=== PATIENT | male | born 1950 | race Two or more races ===

== ENCOUNTER 2021-05-07 10:13 | Emergency (ER) | payer MEDICARE, SELFPAY ==
[2021-05-07 10:25] VITALS: BP 163/87; PULSE 93; RESP 16; TEMP 36.6; O2SAT 97; BMI 29.2
--- NOTE | 2021-05-07 11:16 | ED_ITS ---
HPI - General Adult General Chief complaint: Dyspnea Stated complaint: back pain Time Seen by Provider: 05/07/21 10:46 Source: patient and family Mode of arrival: ambulatory Limitations: language barrier (Comoran-speaking) History of Present Illness HPI narrative: 70-year-old male who recently moved back to [place] from [place] and recently diagnosed with adenocarcinoma of lung on 02/09/2021 presenting to the ED for referral to an oncologist. Reports that he was diagnosed in [place] and had a biopsy any had a PET scan and they told him he had adenocarcinoma of the lung. He decided to leave [place] did not receive any chemotherapy or radiation while he was there and came here for treatment. Denies any additional complaints concerns or worsening symptoms at this time. Related Data Previous Rx's Medication Instructions Recorded oxycodone 5 mg PO BID PRN #20 tab 05/07/21 Allergies Allergy/AdvReac Type Severity Reaction Status Date / Time No Known Allergies Allergy Unknown Unverified 08/07/20 16:08 Review of Systems Review of Systems: Constitutional : Positive lung cancer, No Weight loss, No Fever, No Chills, No Night Sweats, No Fatigue, No Malaise ENT/Mouth : No Hearing loss, No Ear Pain, No Nasal Congestion, No Sinus Pain, No Hoarseness, No sore throat, No Rhinorrhea, No Swallowing Difficulty Eyes: No Eye Pain, No Swelling, No Redness, No Foreign Body, No Discharge, No Vision Changes Cardiovascular : No Chest Pain, No SOB, No Dyspnea on Exertion, No Orthopnea, No Edema, No Palpitations Respiratory : No Cough, No Sputum, No Wheezing, No Smoke Exposure, No Dyspnea Gastrointestinal : No Nausea, No Vomiting, No Diarrhea, No Constipation, No abdominal Pain, No Hematochezia, No Melena Genitourinary : no irregular bleeding, No Dysuria, No Urinary Frequency, No Hematuria, No Urinary Incontinence, No Urgency, No Flank Pain, No Urinary Flow Changes, No Hesitancy Musculoskeletal : No joint pain, No Myalgias, No Joint Swelling Skin : No Skin Lesions, No rash Neuro : No Weakness, No Numbness, No Paresthesias, No Loss of Consciousness, No Dizziness, No Headache Psych : No Anxiety/Panic, No Depression, No SI/HI/AH/VH, No Social Issues, Heme/Lymph: No Bruising, No Bleeding,No Lymphadenopathy Endocrine : No Polyuria, No Polydipsia, No Temperature Intolerance Yes all other systems are reviewed and are negative [facility] Past Medical History Attestation statement: The following information was validated with the patient. Social History Social History Advance Directives: Yes Advance Directives Information Provided: Yes Advance Directives on File: No Physical Exam Vital Signs: Vital Signs: Last Vital Signs Temp 98 F 05/07/21 10:25 Pulse 93 05/07/21 10:25 Resp 16 05/07/21 10:25 BP 163/87 H 05/07/21 10:25 Pulse Ox 97 05/07/21 10:25 Body Mass Index 29.2 vital signs have been reviewed as normal and appeared to be correct. Blood pressure normal. Heart rate normal. Respiration rate normal. Temperature normal. Oxygen saturation normal. Appearance: Alert. Oriented X3. No acute distress. Head: Normal external exam. Normocephalic. Atraumatic. Eyes: PERRLA. EOMI. Conjunctiva and sclera normal. Eyelids normal. ENT: EAC normal. TM's Normal. Pharynx normal. Uvula midline. Moist mucous membranes. No trismus noted. No drooling noted. No muffled voice noted. Neck: Normal inspection. Neck supple. FROM. No adenopathy. Thyroid Normal. No meningeal signs. No neck mass noted. CVS: Normal heart rate and rhythm. Heart sound normal. Pulses normal throughout. No murmurs/rales/gallops. Respiratory: No respiratory distress. Painless inspiration. Breath sounds normal. No wheezes/rales/rhonchi noted. Chest nontender. No accessory muscle usage noted or decreased air movement noted. Abdomen: Soft and nontender. Bowel sounds normal in all 4 quadrants. No distention noted. No organomegaly noted. No visible injury noted. Back: No CVA tenderness. Full range of motion noted. No rashes/lesion/induration/fluctuance or signs of infection noted. Skin: Skin warm and dry. Normal skin color. Normal skin turgor. No rashes/lesions/lacerations noted. Extremities: No lower extremity edema. Extremities exhibit normal range of motion. Extremities nontender. Neuro: Oriented X 3. No motor deficit. No sensory deficit. Reflexes normal. Normal steady gait. No focal neuro deficits noted. Vascular: + radial pulses/+ 2 distal pedal pulses/+2 dorsalis pedis b/l. Normal cap refill. No cyanosis noted to upper extremity nails and lower extremity toes nails. Course Course Course Narrative: 70-year-old male presenting to the ED for referrals due to he recently moved back from [place] to [place] and wants treatment here for his adenocarcinoma of the lung. Reports he did not receive any treatment while he was in [place] other than the diagnosis and the biopsies along with the PET scan. 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 Lung and thyroid neoplasms were positive. Therefore at this time will DC home with symptomatic treatment and instructions follow-up with primary care provider and Oncology. No labs or imaging indicated at this time. Patient and family at bedside understand and agree with this plan. Medical Decision Making Medical Records Medical records reviewed: Yes I reviewed the patient's medical records. Lab Data Lab results reviewed: Yes I reviewed the patient's lab results. Discharge Plan Discharge Clinical Impression: Adenocarcinoma of lung, Cancer of thyroid Patient Disposition: Home, Self-Care Instructions: Lung Cancer (DC), Thyroid Cancer (DC) Prescriptions: New oxycodone 5 mg tablet 5 mg PO BID PRN (Reason: pain) Qty: 20 RF: 0 Referrals: Sudhakar Landrum MD [Primary Care Provider] - 2 days Anuradha Begum MD [Physician] - 2 days Jadyn Lundberg MD [Physician] - 2 days Print Language: Com[place]an
== END 2021-05-07 12:25 | disposition home or self-care (01) ==
PROVIDERS: Emergency Provider Emergency Medicine; PCP Internal Medicine
DX: C34.90 Malignant neoplasm of unspecified part of unspecified bronchus or lung (principal); C73 Malignant neoplasm of thyroid gland
CPT/HCPCS: 99282; 99283

== ENCOUNTER 2021-05-22 15:48 | Outpatient (REF) | payer MEDICARE, MEDICAID, SELFPAY ==
--- NOTE | ~2021-05-22 | US_ITS ---
EXAMINATION: US THYROID CLINICAL INFORMATION: New diagnosis of right lung cancer. Thyroid cancer. COMPARISON: None TECHNIQUE: Linear transducer grayscale and color Doppler examination with attention to the region of the thyroid. FINDINGS: SIZE: Measurements of the thyroid lobes and nodules are given in sagittal, anteroposterior and transverse dimensions respectively. Right Thyroid Lobe: 4.0 x 1.2 x 1.7 cm, volume 4.3 mL. Parenchyma: The gland echotexture is homogeneous. Thyroid vascularity is normal. Left Thyroid Lobe: 3.3 x 0.9 x 1.2 cm, volume 1.9 mL. Parenchyma: The gland echotexture is homogeneous. Thyroid vascularity is normal. Isthmus: 0.3 cm in maximum AP dimension. Estimated total number of nodules greater than or equal to 1 cm: 0. 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 Location: Right isthmus. Size: 0.7 x 0.5 x 0.5 cm, volume 0.2 mL. Nodule characteristics: Composition: Solid/almost completely solid (2). Echogenicity: Isoechoic (1). Shape: Not taller than wide (0). Margins: Smooth (0). Echogenic Foci: None (0). ACR TI-RADS total points: 3 ACR TI-RADS category: 3 2. Location: Right inferior. Size: 0.6 x 0.5 x 0.7 cm, volume 0.12 mL. Nodule characteristics: Composition: Mixed cystic and solid (1). Echogenicity: Cannot be determined (1). Shape: Taller than wide (3). Margins: Smooth (0). Echogenic Foci: Macrocalcifications (1). ACR TI-RADS total points: 6 ACR TI-RADS category: 4 3. Location: Left inferior. Size: 0.8 x 0.5 x 0.9 cm, volume 0.2 mL. Nodule characteristics: Composition: Solid/almost completely solid (2). Echogenicity: Hyperechoic (1). Shape: Not taller than wide (0). Margins: Smooth (0). Echogenic Foci: None (0). ACR TI-RADS total points: 3 ACR TI-RADS category: 3 4. Location: Left mid. Size: 0.4 x 0.3 x 0.5 cm, volume 0.03 mL. Nodule characteristics: Composition: Cystic(0). ACR TI-RADS total points: 0 ACR TI-RADS category: 1 NODES: No lymphadenopathy is seen in the tissue surrounding the thyroid gland. US/US thyroid IMPRESSION: Small bilateral thyroid nodules. ACR TI-RADS RECOMMENDATION REFERENCE: Ultrasound-guided fine-needle aspiration, followup ultrasound, no further follow up. * TR1 (0 point) and TR 2 (2 points): No FNA or follow up * TR3 (3 points): FNA if more than or equal to 2.5 cm in maximum dimension, followup ultrasound in 1, 3 and 5 years if 1.5 to 2.4 cm in maximum dimension. * TR4 (4-6 points): FNA if more than or equal to 1.5 cm in maximum dimension, followup ultrasound in 1, 2, 3 and 5 years if 1 to 1.4 cm in maximum dimension. * TR5 (more than or equal to 7 points): FNA if more than or equal to 1 cm in maximum dimension, followup ultrasound every year for 5 years if 0.5 to 0.9 cm in maximum dimension. * TR3, TR4 or TR5 nodules that are below the size threshold for follow up receive no follow up.
== END 2021-05-22 15:49 | disposition home or self-care (01) ==
LOC: HO.US 15:48
PROVIDERS: Visit Provider Internal Medicine
DX: C73 Malignant neoplasm of thyroid gland (principal)
CPT/HCPCS: 76536

== ENCOUNTER 2021-05-29 | Outpatient (REF) | payer MEDICARE, MEDICAID, SELFPAY | END 2021-05-29 00:01 | disposition home or self-care (01) | LOC: HO.RESP | PROVIDERS: Visit Provider Surgery | DX: C34.91 Malignant neoplasm of unspecified part of right bronchus or lung (principal) | CPT/HCPCS: 94060; 94727; 94729 ==

== ENCOUNTER → 2021-05-29 07:49 | Outpatient (BNV) | payer MEDICARE, OTHER, MEDICAID, SELFPAY | PROVIDERS: PCP Internal Medicine; Referring Provider Internal Medicine; Visit Provider Internal Medicine Medical Oncology | DX: C34.92 Malignant neoplasm of unspecified part of left bronchus or lung (principal); R97.20 Elevated prostate specific antigen [PSA]; Z85.46 Personal history of malignant neoplasm of prostate; C34.31 Malignant neoplasm of lower lobe, right bronchus or lung | CPT/HCPCS: 99204; 99213; 99214 ==

== ENCOUNTER 2021-06-10 08:05 | Outpatient (REF) | payer MEDICARE, MEDICAID, SELFPAY ==
--- NOTE | ~2021-06-10 | CT_ITS ---
EXAMINATION: CT CHEST WITHOUT CONTRAST CLINICAL INFORMATION: Neoplasm COMPARISON: Previous chest x-ray March 2007 TECHNIQUE: Multidetector volumetric CT imaging of the chest was done. Axial MIP volume rendering provided. Sagittal and coronal reformatted images were obtained. This CT examination was performed using dose optimization techniques as appropriate, variously including the following: *Automated exposure control *Adjustment of mA and/or kV according to patient size (this includes techniques or standardized protocols for targeted exams where dose is matched to indication/reason for exam; i.e. extremities or head) *Use of iterative reconstruction technique DLP: 179 mGy-cm FINDINGS: LUNGS: There is a 4 mm calcified right upper lobe nodule axial image 126 series 5. There is a 2 mm calcified left upper lobe nodule axial image 222 series 5. There is a 5 mm calcified right middle lobe nodule axial image 234 series 5. There is a heterogeneous semisolid superior segment left lower lobe peripheral nodule axial image 245 series 5. Peripheral groundglass attenuation component measures 0.9 x 1.2 cm. More solid eccentric component measures neuro 0.3 x 0.7 cm. There is a irregularly-shaped peripheral right lower lobe slightly heterogeneous or semisolid nodule measuring 1.8 x 2 cm axial image 285 series 5. There is mild retraction the adjacent major fissure. There is a 2 mm calcified right lower lobe nodule axial image 305 series 5. There is a 2 mm noncalcified peripheral or subpleural right lower lobe nodule adjacent to the major fissure axial image 322 series 5. There is a 2 mm noncalcified peripheral or subpleural left lower lobe nodule axial image 5. MEDIASTINUM: There is diffuse shotty mediastinal lymphadenopathy. No enlarged lymph nodes are seen. The heart does not appear enlarged. There is coronary artery calcification. Is no pericardial. The thoracic aorta is normal in caliber. The visualized thyroid gland is unremarkable. The esophagus. PLEURA: There is no pleural effusion. No pleural mass or thickening. AXILLA: No lymphadenopathy. UPPER ABDOMEN: Unremarkable. OSSEOUS STRUCTURES: There are degenerative changes of the spine. CT/CT chest wo con IMPRESSION: Bilateral lower lobe pulmonary nodules suspicious for neoplasm. Numerous small bilateral calcified and noncalcified micronodules. Mild coronary artery calcification.
== END 2021-06-10 08:06 | disposition home or self-care (01) ==
LOC: HO.CT 08:05
PROVIDERS: PCP Internal Medicine; Visit Provider Surgery
DX: C34.91 Malignant neoplasm of unspecified part of right bronchus or lung (principal)
CPT/HCPCS: 71250

== ENCOUNTER → 2021-06-12 08:55 | Outpatient (BNVA) | payer MEDICARE, MEDICAID, SELFPAY | PROVIDERS: PCP Internal Medicine; Visit Provider Surgery | DX: C34.91 Malignant neoplasm of unspecified part of right bronchus or lung (principal); Z79.899 Other long term (current) drug therapy; Z87.891 Personal history of nicotine dependence | CPT/HCPCS: 99212 ==

== ENCOUNTER 2021-08-17 10:30 | Outpatient (REF) | payer MEDICARE, MEDICAID, SELFPAY ==
[2021-08-17 10:35] LABS: MANUAL DIFF FLAG NO
[2021-08-17 11:00] LABS: Basophils Percent Auto 0.4 % (0-2); Eosinophils Absolute Auto 0.3 X10*3/uL (0.0-0.4); Eosinophils Percent Auto 4.6 % (0-4); Hematocrit 38.3 % (42-52); Hemoglobin 12.5 g/dl (14.0-18.0); Imm Gran Abs Auto 0.02 X10*3/uL (0.00-0.03); Imm Gran Pct Auto 0.4 % (0.0-0.4); Lymphocytes Absolute Auto 1.4 X10*3/uL (1.2-4.9); Lymphocytes Percent Auto 26.3 % (20-40); Mean Corpuscular HGB Conc 32.6 g/dl (31.0-36.0); Mean Corpuscular Hemoglobin 31.4 pg (27.0-33.0); Mean Corpuscular Volume 96.2 fL (80-98); Mean Platelet Volume 10.7 fL (9.4-12.4); Monocytes Absolute Auto 0.4 X10*3/uL (0.1-1.2); Monocytes Percent Auto 7.5 % (2-11); Neutrophils Absolute Auto 3.3 X10*3/uL (2.0-8.3); Neutrophils Percent Auto 60.8 % (45-73); Platelet Count 225 X10*3/uL (160-400); Red Blood Count 3.98 X10*6/uL (4.60-5.80); Red Cell Distribution Width 12.1 % (11.0-16.0); White Blood Count 5.4 X10*3/uL (4.8-10.8)
[2021-08-17 11:32] LABS: Estimated Average Glucose 128 mg/dL; Hemoglobin A1c % 6.1 %
[2021-08-17 11:35] LABS: Alanine Aminotransferase 20 U/L (0-40); Alkaline Phosphatase 82 U/L (39-117); Anion Gap 13 (12-20); Appearance Urine CLEAR; Aspartate Amino Transferase 11 U/L (5-37); Bilirubin Total 0.7 mg/dL (0.0-1.0); Blood Urea Nitrogen 13 mg/dL (9-16); Calcium 8.9 mg/dL (8.4-10.2); Carbon Dioxide 26 mmol/L (22-29); Chloride 104 mmol/L (96-108); Cholesterol 95 mg/dL; Color Urine YELLOW; Estimated Glomerular Filt Rate > 60; Glucose Fasting 157 mg/dL (60-99); Glucose Urine UA NEG (NEG); HDL Cholesterol 38 mg/dL; LDL Cholesterol Calculated 38 mg/dl; Leukocyte Esterase Urine NEG (NEG); Nitrite Urine NEG (NEG); PH 5.5 (5.0-8.0); Potassium 3.8 mmol/L (3.3-5.1); Sodium 139 mmol/L (135-145); Specific Gravity - Urine >= 1.030 (1.005-1.025); Total Protein 6.1 g/dL (6.5-8.0); Triglycerides 95 mg/dL; Urine Blood TRACE (NEG); Urine Ketones NEG (NEG); Urine Protein NEG (NEG-TRACE)
[2021-08-17 11:47] LABS: PSA,Total (Free>4and<10) 0.22 ng/mL (0.00-4.00); TSH reflex Free T4 1.06 uIU/mL (0.32-4.0)
[2021-08-17 11:49] LABS: Calcium Oxalate Crystals Urine 2+ /LPF; Mucus Urine 1+ /LPF; RBC Urine 0 /HPF (0); WBC Urine 0 /HPF (0-4)
[2021-08-17 12:06] LABS: Creatinine Urine 194.63 mg/dL; Microalbum/Creatinine Ratio Ur 5.1 ug/mg cr
[2021-08-17 12:51] LABS: Reflex LDLD? No
== END 2021-08-17 10:31 | disposition home or self-care (01) ==
LOC: HO.LNP 10:30
PROVIDERS: Visit Provider Internal Medicine
DX: Z12.5 Encounter for screening for malignant neoplasm of prostate (principal); E11.9 Type 2 diabetes mellitus without complications; E78.6 Lipoprotein deficiency; C73 Malignant neoplasm of thyroid gland; Z85.46 Personal history of malignant neoplasm of prostate
CPT/HCPCS: 80053; 80061; 81001; 81003; 82043; 83036; 84153; 84443; 85025

== ENCOUNTER 2022-01-06 10:16 | Outpatient (REF) | payer MEDICARE, MEDICAID, SELFPAY ==
--- NOTE | ~2022-01-06 | CT_ITS ---
EXAMINATION: CT CHEST WITH CONTRAST CLINICAL INFORMATION: Followup lung cancer. Status post surgery. COMPARISON: CT chest 06/10/2021 TECHNIQUE: Multidetector volumetric CT imaging of the chest was obtained after the administration of 50 mL of Omnipaque 350 intravenous contrast without immediate adverse reactions. Axial MIP volume rendering provided. Sagittal and coronal reformatted images were obtained. This CT examination was performed using dose optimization techniques as appropriate, variously including the following: *Automated exposure control *Adjustment of mA and/or kV according to patient size (this includes techniques or standardized protocols for targeted exams where dose is matched to indication/reason for exam; i.e. extremities or head) *Use of iterative reconstruction technique DLP: 259 mGy-cm FINDINGS: TISSUE INSERTER: Hypoexpanded lungs. LUNGS: Both lungs are fairly well expanded. There is a calcified 4 mm nodule peripherally-based right upper lobe axial image 126/5, 5 mm calcified nodule right middle lobe axial image 219/5. Previously seen peripheral nodule right lower lobe has been surgically removed. There are partial right lower lobectomy changes. There are linear atelectatic changes in the right middle lobe. No ground-glass attenuation is seen. No recurrent nodule is seen. There is an ill-defined 1.5 cm semisolid nodule/density peripherally-based left lower lobe superior segment on axial image 179/5. Previously, it measured approximately 1.2 cm and visually appears the same size. MEDIASTINUM: The central trachea and the bronchi are widely patent. The thyroid lobes are symmetrical. The heart size and the great vessels are normal caliber. There are coronary artery calcifications present. No pericardial effusion is seen. No abnormal sized mediastinal or hilar lymph nodes seen. PLEURA: There is a new small right pleural effusion. No pleural thickening or calcification visualized. AXILLA: No lymphadenopathy. UPPER ABDOMEN: The visualized liver is diffusely attenuated. The spleen, pancreas and bilateral adrenal glands are unremarkable. There is a punctate calcification along the anterior wall of the gallbladder but no dependent radiopaque calculi or wall thickening. OSSEOUS STRUCTURES: Unremarkable. CT/CT chest w con IMPRESSION: Partial right lower lobectomy with no recurrent mass. Stable bilateral calcified pulmonary nodule and 1.5 cm semisolid nodule/density left lower lobe superior segment. No new nodules seen. Fleischner guidelines were followed.
[2022-01-06] MEDS: iohexoL 350 MG/ML 100 ML INFUS..BTL IV (10:54)
== END 2022-01-06 10:17 | disposition home or self-care (01) ==
LOC: HO.CT 10:16
PROVIDERS: Visit Provider Internal Medicine Medical Oncology
DX: C34.91 Malignant neoplasm of unspecified part of right bronchus or lung (principal)
CPT/HCPCS: 71260; Q9967

== ENCOUNTER → 2022-01-29 09:20 | Outpatient (BNVA) | payer MEDICARE, SELFPAY | PROVIDERS: PCP Internal Medicine; Visit Provider Surgery | DX: R91.1 Solitary pulmonary nodule (principal); C34.91 Malignant neoplasm of unspecified part of right bronchus or lung; Z79.899 Other long term (current) drug therapy; Z79.84 Long term (current) use of oral hypoglycemic drugs; Z87.891 Personal history of nicotine dependence | CPT/HCPCS: 99212 ==

== ENCOUNTER 2022-02-03 12:52 | Outpatient (REF) | payer MEDICARE, SELFPAY ==
--- NOTE | 2022-02-03 11:28 | PFT_ITS ---
INDICATION: Lung cancer, pulmonary nodule. SPIROMETRY: FEV1 to FVC of 87% with an FEV1 of 2.27 L, which is 90% predicted, and FVC of 2.61 L, which is 77% predicted. No significant response to bronchodilators noted. Maximum voluntary ventilation 121% predicted. LUNG VOLUMES: Total lung capacity 67% predicted with an expiratory reserve volume that could not be calculated. DIFFUSION CAPACITY: DLCO 68% predicted. COMPARISONS: None. INTERPRETATION: No obstructive ventilatory defect. No significant response to bronchodilators noted. Normal maximum voluntary ventilation. The patient does have restrictive ventilatory defect consistent with moderate restrictive lung disease. This is likely secondary to surgical intervention in the past. Although, cannot rule out any underlying parenchymal lung conditions or neuromuscular conditions at this time. The patient does have a mild diffusion impairment. Clinical correlation warranted. MD YAMIL Nair/MODL / [id number]
== END 2022-02-03 12:53 | disposition home or self-care (01) ==
LOC: HO.RESP 12:52
PROVIDERS: PCP Internal Medicine; Visit Provider Surgery
DX: R91.1 Solitary pulmonary nodule (principal)
CPT/HCPCS: 94060; 94727; 94729

== ENCOUNTER 2022-02-23 11:42 | Outpatient (REF) | payer MEDICARE, SELFPAY ==
[2022-02-23 12:59] LABS: Alanine Aminotransferase 18 U/L (0-40); Albumin Level 3.8 g/dL (3.5-5.0); Alkaline Phosphatase 95 U/L (39-117); Aspartate Amino Transferase 10 U/L (5-37); Bilirubin Direct 0.2 mg/dL (0.0-0.5); Bilirubin Total 0.5 mg/dL (0.0-1.0); Cholesterol 92 mg/dL; HDL Cholesterol 34 mg/dL; LDL Cholesterol Calculated 46 mg/dl; Total Protein 6.1 g/dL (6.5-8.0); Triglycerides 61 mg/dL
[2022-02-23 13:51] LABS: Reflex LDLD? No
== END 2022-02-23 11:43 | disposition home or self-care (01) ==
LOC: HO.LNP 11:42
PROVIDERS: PCP Internal Medicine; Visit Provider Internal Medicine
DX: E11.9 Type 2 diabetes mellitus without complications (principal); E78.00 Pure hypercholesterolemia, unspecified
CPT/HCPCS: 80061; 80076

== ENCOUNTER 2022-07-08 08:50 | Outpatient (REF) | payer MEDICARE, SELFPAY ==
--- NOTE | ~2022-07-08 | US_ITS ---
EXAMINATION: US THYROID CLINICAL INFORMATION: Thyroid cancer. COMPARISON: Ultrasound soft tissue head/neck thyroid dated 05/22/2021. TECHNIQUE: Linear transducer grayscale and color Doppler examination with attention to the region of the thyroid. FINDINGS: SIZE: Measurements of the thyroid lobes and nodules are given in sagittal, anteroposterior and transverse dimensions respectively. Right Thyroid Lobe: 4.1 x 1.2 x 1.9 cm, volume 4.9 mL. Previously 4.0 x 1.2 x 1.7 cm, volume 4.3 mL. Parenchyma: The gland echotexture is homogeneous. Thyroid vascularity is normal. Left Thyroid Lobe: 4.1 x 1.3 x 1.4 cm, volume 3.9 mL. Previously 3.3 x 0.9 x 1.2 cm, volume 1.9 mL. Parenchyma: The gland echotexture is homogeneous. Thyroid vascularity is normal. Isthmus: 0.4 cm in maximum AP dimension. Previously 0.3 cm. Estimated total number of nodules greater than or equal to 1 cm: 0. 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 Location: Right isthmus. Size: 0.6 x 0.8 x 0.5 cm, volume 0.1 mL. Previously: 0.7 x 0.5 x 0.5 cm, volume 0.2 mL. Nodule characteristics: Composition: Solid/almost completely solid (2). Echogenicity: Isoechoic (1). Shape: Not taller than wide (0). Margins: Smooth (0). Echogenic Foci: None (0). ACR TI-RADS total points: 3 Previous: 3 ACR TI-RADS category: 3 Previous: 3 Significant change in size (>/= 20% in 2 dimensions and minimal increase of 2 mm or 50% or greater increase in volume): None Change in features: None Change in ACR TI-RADS risk category: None 2. Location: Right inferior. Size: 0.8 x 0.7 x 0.7 cm, volume 0.2 mL. Previously: 0.6 x 0.5 x 0.7 cm, volume 0.12 mL. Nodule characteristics: Composition: Mixed cystic and solid (1). Echogenicity: Cannot be determined (1). Shape: Not taller than wide (0). Margins: Smooth (0). Echogenic Foci: Comet-tail artifacts (0). ACR TI-RADS total points: 2 Previous: 6 ACR TI-RADS category: 2 Previous: 4 Significant change in size (>/= 20% in 2 dimensions and minimal increase of 2 mm or 50% or greater increase in volume): None Change in features: None Change in ACR TI-RADS risk category: Improved 3. Location: Left mid. Size: 0.3 x 0.2 x 0.3 cm, volume 0.01 mL. Previously: 0.4 x 0.3 x 0.5 cm, volume 0.03 mL. Nodule characteristics: Composition: Cystic(0). ACR TI-RADS total points: 0 Previous: 0 ACR TI-RADS category: 1 Previous: 1 Significant change in size (>/= 20% in 2 dimensions and minimal increase of 2 mm or 50% or greater increase in volume): None Change in features: None Change in ACR TI-RADS risk category: No change 4. Location: Left inferior. Size: 0.6 x 0.3 x 0.6 cm, volume 0.1 mL. Previously: 0.8 x 0.5 x 0.9 cm, volume 0.2 mL. Nodule characteristics: Composition: Solid/almost completely solid (2). Echogenicity: Hyperechoic (1). Shape: Not taller than wide (0). Margins: Smooth (0). Echogenic Foci: None (0). ACR TI-RADS total points: 3 Previous: 3 ACR TI-RADS category: 3 Previous: 3 Significant change in size (>/= 20% in 2 dimensions and minimal increase of 2 mm or 50% or greater increase in volume): None Change in features: None Change in ACR TI-RADS risk category: No change NODES: No lymphadenopathy is seen in the tissue surrounding the thyroid gland. US/US thyroid IMPRESSION: Bilateral homogeneous thyroid lobes with multiple subcentimeter thyroid nodules, none suspicious. The right lower pole thyroid nodule category has improved since the last ultrasound 05/22/2021. ACR TI-RADS RECOMMENDATION REFERENCE: Ultrasound-guided fine-needle aspiration, followup ultrasound, no further follow up. * TR1 (0 point) and TR 2 (2 points): No FNA or follow up * TR3 (3 points): FNA if more than or equal to 2.5 cm in maximum dimension, followup ultrasound in 1, 3 and 5 years if 1.5 to 2.4 cm in maximum dimension. * TR4 (4-6 points): FNA if more than or equal to 1.5 cm in maximum dimension, followup ultrasound in 1, 2, 3 and 5 years if 1 to 1.4 cm in maximum dimension. * TR5 (more than or equal to 7 points): FNA if more than or equal to 1 cm in maximum dimension, followup ultrasound every year for 5 years if 0.5 to 0.9 cm in maximum dimension. * TR3, TR4 or TR5 nodules that are below the size threshold for follow up receive no follow up.
== END 2022-07-08 08:51 | disposition home or self-care (01) ==
LOC: HO.US 08:50
PROVIDERS: Visit Provider Internal Medicine
DX: C73 Malignant neoplasm of thyroid gland (principal); C34.91 Malignant neoplasm of unspecified part of right bronchus or lung
CPT/HCPCS: 76536

== ENCOUNTER 2022-08-03 16:59 | Emergency (ER) | payer MEDICARE, SELFPAY | END 2022-08-03 19:49 | disposition left against medical advice (07) | PROVIDERS: Emergency Provider Emergency Medicine | DX: M25.562 Pain in left knee (principal) ==

== ENCOUNTER 2022-08-04 10:00 | Emergency (ER) | payer MEDICARE, SELFPAY ==
--- NOTE | ~2022-08-04 | XR_ITS ---
EXAMINATION: XR KNEE, LEFT CLINICAL INFORMATION: Left knee pain. COMPARISON: None TECHNIQUE: Four views of the left knee. FINDINGS: Bones and soft tissues are normal. No fracture or joint effusion. Alignment is anatomic. Joint spaces are well maintained. No abnormal soft tissue calcification. XR/XR knee LT 4V IMPRESSION: Unremarkable left knee.
[2022-08-04 11:19] VITALS: BP 144/75; PULSE 93; RESP 20; TEMP 37.1; O2SAT 97; BMI 33.3
--- NOTE | 2022-08-04 14:31 | ED.GENADULT ---
HPI - General Adult General Chief complaint: Extremity Injury, Lower Stated complaint: fall L knee inj 08/04/22 Time Seen by Provider: 08/04/22 11:39 Source: patient Mode of arrival: ambulatory Limitations: no limitations History of Present Illness HPI narrative: 71-year-old male presents to ED for left knee pain. Patient states yesterday he was walking all the sudden heard a pop in the left knee has severe pain. Patient has pain on ambulation due to left knee pain. Patient denies falling to the ground or hitting head. Patient states his friend caught him before he fell to the ground. Patient denies any knee swelling, redness, or warmth. Related Data Home Medications Medication Instructions Recorded Confirmed atorvastatin 20 mg tablet 20 mg PO DAILY 05/29/21 07/08/22 glimepiride 1 mg tablet 1 mg PO DAILY 05/29/21 07/08/22 metformin 500 mg tablet 1,000 mg PO BID 05/29/21 07/08/22 Previous Rx's Medication Instructions Recorded osimertinib 80 mg tablet 80 mg PO DAILY #90 tabs 04/12/22 acetaminophen 325 mg capsule 325 mg PO QID PRN pain 7 days #28 08/04/22 (Tylenol) caps oxycodone 5 mg tablet 5 mg PO TID PRN pain 3 days #9 tabs 08/04/22 prednisone 20 mg tablet 40 mg PO DAILY 5 days #10 tabs 08/04/22 Allergies Allergy/AdvReac Type Severity Reaction Status Date / Time No Known Allergies Allergy Unknown Verified 07/08/22 08:26 Review of Systems Review of Systems: Left knee pain Yes all other systems are reviewed and are negative [facility] Past Medical History Medical History (Updated 08/04/22 @ 14:42 by MARK Blevins) Adenocarcinoma of right lung (~01/2021) Bronchitis Erectile dysfunction due to arterial insufficiency History of prostate cancer Low HDL (under 40) Personal history of nicotine dependence Pure hypercholesterolemia Rising PSA level Sciatic leg pain Type 2 diabetes mellitus without complication Surgical History History of colonoscopy History of eye surgery History of lobectomy of lung History of lung biopsy History of prostate biopsy Family History Family History Father Diabetes Prostate cancer Alzheimer disease Sister Colon cancer Social History Social History Household Members: None Housing: Apartment Are you a primary health care / medical job titles to a significant other at home: No Do you presently have visiting nurse or other home services: No Alcohol intake: current Alcohol intake frequency: a few times a month Alcohol type: beer Patient Tobacco Use Status: Former Tobacco user Quit Date: 1997 Years Smoked: 48 Advance Directives: No Advance Directives Information Provided: Yes service: No Current occupational status: retired Physical Exam ED Vital Signs: Vital Signs - 24 hr 08/04/22 11:19 Temperature 98.7 F Pulse Rate 93 Respiratory Rate 20 Blood Pressure 144/75 H Pulse Oximetry 97 Oxygen Delivery Method Room Air BMI result Body Mass Index 33.3 Const General: cooperative, healthy appearing, comfortable, no acute distress, well developed, alert and awake Orientation/consciousness: patient oriented x3 HENMT Head: Yes normal to inspection, Yes No palpable skull fracture present, Yes normocephalic, Yes atraumatic and No abrasion Eyes General: appearance normal, both eyes and all related structures Neck Neck: Yes normal visual inspection, Yes full ROM, Yes no lymphadenopathy, Yes no meningeal signs, Yes trachea midline, Yes supple, No anterior neck swelling and No tender Chest Chest palpation & inspection: normal inspection of the chest and normal palpation of entire chest wall Resp Effort & Inspection: normal respiratory effort and able to speak in complete sentences Auscultation: clear to auscultation bilaterally Cardio Jugular venous distension: no JVD Heart sounds: S1 normal heart sound present and S2 normal heart sound present GI Inspection: Yes normal to inspection and No abdominal wall ecchymosis Palpation (GI): Soft to palpation, not firm, nontender, no guarding and not rigid General: No CVA tenderness and Yes no CVA tenderness Back/Spine/Pelvis Back: no CVA tenderness, No CVA tenderness and No back tenderness Skin General skin exam: no rashes or lesions noted and elasticity normal Neuro General: patient oriented x3, gait normal, tone normal and no meningeal signs Extrem Other: Motor/neuro/vascular exam of all extremities including left lower extremity is intact. General: Yes normal to inspection and Yes full ROM Knee images: 1. Positive for anterior and lateral knee pain. Patient has complete range of motion of knee. Negative for warmth or erythema. Negative for swelling. Negative for different thigh to indicate quadriceps tendon rupture. Negative for ecchymosis or deformity. Rest of lower extremity normal. Psych Appearance: grossly normal, well kempt and not disheveled Course Course Course Narrative: Patient sent for left knee x-ray. Reevaluation(s) Reevaluation #1: Left knee x-ray normal. Patient informed he will need MRI to rule out any meniscus ligament or tendon tear in her knee. Patient placed in knee brace and crutches. Patient discharged with steroids, pain meds. Time: 14:39 Medical Decision Making MDM Narrative Medical decision making narrative: Knee sprain Discharge Plan Discharge Clinical Impression: Knee sprain Patient Disposition: Home, Self-Care Instructions: Knee Sprain (ED), R.I.C.E. Treatment (ED) Additional Instructions: La radiograf?a de rivera rodilla result? normal y negativa para fractura. Debido a la descripci?n de la sensaci?n de escuchar un chasquido en la rodilla, lo m?s probable es que necesite steffen resonancia magn?esther para descartar cualquier lesi?n en el ligamento del menisco o en el tend?n. Ser? dado de bishop con muletas e inmovilizador de rodilla. Por favor, fátima un seguimiento con el proveedor de atenci?n primaria. Regrese al servicio de urgencias de inmediato si presenta hinchaz?n, enrojecimiento, calor, hinchaz?n de las extremidades inferiores, dolor en la pantorrilla, fiebre, escalofr?os o cualquier otro s?ntoma preocupante. Prescriptions: New prednisone 20 mg tablet 40 mg PO DAILY 5 Days Qty: 10 0RF acetaminophen [Tylenol] 325 mg capsule 325 mg PO QID PRN (Reason: pain) 7 Days Qty: 28 0RF oxycodone 5 mg tablet 5 mg PO TID PRN (Reason: pain) 3 Days Qty: 9 0RF Rx Instructions: Partial Fill upon patient request. side effect is drowsiness. Do not take at work or while driving. No Action metformin 500 mg Tablet 1,000 mg PO BID atorvastatin 20 mg Tablet 20 mg PO DAILY glimepiride 1 mg Tablet 1 mg PO DAILY osimertinib 80 mg Tablet 80 mg PO DAILY Qty: 90 4RF Referrals: Sudhakar Landrum MD [Primary Care Provider] - (Knee sprain. WIll need MRI for possible meniscus tear or ligament tear.) John Fabian MD [Physician] - (Need MRI for knee pain. hear pop in knee.) Interventions: ED Discharge Assessment Last Done: 08/04/22 17:02 Discharge Date/Time: 08/04/22 17:22 Print Language: Lithuanian
== END 2022-08-04 17:22 | disposition home or self-care (01) ==
PROVIDERS: Emergency Provider Emergency Medicine; PCP Internal Medicine
DX: S83.92XA Sprain of unspecified site of left knee, initial encounter (principal); X58.XXXA Exposure to other specified factors, initial encounter; Y93.9 Activity, unspecified; Y92.9 Unspecified place or not applicable; Y99.9 Unspecified external cause status; Z79.899 Other long term (current) drug therapy; Z87.891 Personal history of nicotine dependence
CPT/HCPCS: 73564; 99282; 99283

== ENCOUNTER 2022-08-18 08:06 | Outpatient (REF) | payer MEDICARE, SELFPAY ==
--- NOTE | ~2022-08-18 | CT_ITS ---
EXAMINATION: CT CHEST WITH CONTRAST CLINICAL INFORMATION: Follow up lung cancer. COMPARISON: CT chest 01/06/2022. TECHNIQUE: Multidetector volumetric CT imaging of the chest was obtained after the administration of 65 mL of Omnipaque 350 intravenous contrast without immediate adverse reactions. Axial MIP volume rendering provided. Sagittal and coronal reformatted images were obtained. This CT examination was performed using dose optimization techniques as appropriate, variously including the following: *Automated exposure control *Adjustment of mA and/or kV according to patient size (this includes techniques or standardized protocols for targeted exams where dose is matched to indication/reason for exam; i.e. extremities or head) *Use of iterative reconstruction technique DLP: 146 mGy-cm FINDINGS: MATERIAL LIAISON: Elevated right hemidiaphragm. The lungs appear clear. LUNGS: Since the last CT chest 01/06/2021 patient has had left lower wedge resection with removal of left lower lobe subpleural-based nodule. There is previous right lower lobe lobectomy or wedge resection as well. Small subpleural calcified 4 mm nodule right upper lobe axial image 64/9 and 5 mm calcified nodule right lower lobe axial image 104/9 are stable. No additional pulmonary nodule seen. MEDIASTINUM: The central trachea and the bronchi are widely patent. Thyroid lobes are symmetrical and normal. Heart size and the great vessels are normal caliber. There are trace coronary artery calcifications present. No pericardial effusion seen. Surgical [place] are seen in the right inferior hilum likely from lymph node dissection. CORONARY ARTERY CALCIFICATION: There are trace coronary artery calcifications. PLEURA: Small right pleural effusion seen. There is no calcified pleural plaques. AXILLA: No abnormal axillary lymph nodes visualized. The chest wall is unremarkable. UPPER ABDOMEN: The liver is diffusely hypointense likely from fatty infiltration. No focal lesion seen. There is no hepatosplenomegaly. The pancreas and bilateral adrenal glands unremarkable. No radiopaque gallstone seen. However there is a punctate calcification along fundus of gallbladder likely wall calcification, unchanged. OSSEOUS STRUCTURES: No lytic or sclerotic process seen. There is moderate ventral spondylosis throughout mid and lower dorsal spine. CT/CT chest w IV con IMPRESSION: Interval left lower lobectomy or wedge resection with nonvisualization of previously visualized left lower lobe subpleural-based nodule. Right lower lobe lobectomy/wedge resection, unchanged. Two calcified nodules right lower lobe are stable. No new pulmonary nodule seen at this time. Fatty liver. Fleischner guidelines were followed.
[2022-08-18] MEDS: iohexoL 350 MG/ML 100 ML INFUS..BTL IV (09:50)
== END 2022-08-18 08:07 | disposition home or self-care (01) ==
LOC: HO.CT 08:06
PROVIDERS: Visit Provider Internal Medicine Medical Oncology
DX: C34.91 Malignant neoplasm of unspecified part of right bronchus or lung (principal); C61 Malignant neoplasm of prostate
CPT/HCPCS: 71260; Q9967

== ENCOUNTER 2022-08-26 11:05 | Outpatient (REF) | payer MEDICARE, SELFPAY ==
[2022-08-26 11:10] LABS: MANUAL DIFF FLAG NO
[2022-08-26 11:38] LABS: Basophils Percent Auto 0.6 % (0-2); Eosinophils Absolute Auto 0.1 X10*3/uL (0.0-0.4); Eosinophils Percent Auto 2.3 % (0-4); Hematocrit 39.2 % (42.0-52.0); Hemoglobin 13.3 g/dl (14.0-18.0); Imm Gran Abs Auto 0.02 X10*3/uL (0.00-0.03); Imm Gran Pct Auto 0.4 % (0.0-0.4); Lymphocytes Absolute Auto 1.4 X10*3/uL (1.2-4.9); Lymphocytes Percent Auto 29.1 % (20-40); Mean Corpuscular HGB Conc 33.9 g/dl (31.0-36.0); Mean Corpuscular Hemoglobin 31.3 pg (27.0-33.0); Mean Corpuscular Volume 92.2 fL (80.0-98.0); Mean Platelet Volume 10.9 fL (9.4-12.4); Monocytes Absolute Auto 0.5 X10*3/uL (0.1-1.2); Monocytes Percent Auto 9.6 % (2-11); Neutrophils Absolute Auto 2.7 x10*3/uL (2.0-8.3); Platelet Count 227 X10*3/uL (160-400); Red Blood Count 4.25 X10*6/uL (4.60-5.80); Red Cell Distribution Width 12.8 % (11.0-16.0); White Blood Count 4.7 X10*3/uL (4.8-10.8)
[2022-08-26 11:40] LABS: Appearance Urine Clear; Color Urine Yellow; Glucose Urine UA Negative (Negative); Leukocyte Esterase Urine Negative (Negative); Nitrite Urine Negative (Negative); Specific Gravity - Urine 1.025 (1.005-1.025); Urine Blood Negative (Negative); Urine Ketones Negative (Negative); Urine Protein Negative (Neg-Trace)
[2022-08-26 11:43] LABS: Bacteria Urine None Seen (None Seen); Hyaline Casts Urine 0-2 /LPF (0-2); RBC Urine 0-2 /HPF (0-2); Squamous Epithelial Cell Urine 0-2 /HPF (0-2); WBC Urine 0-5 /HPF (0-5)
[2022-08-26 11:46] LABS: Alanine Aminotransferase 18 U/L (0-40); Albumin Level 4.2 g/dL (3.5-5.0); Alkaline Phosphatase 75 U/L (39-117); Anion Gap 12 (12-20); Aspartate Amino Transferase 12 U/L (5-37); Bilirubin Total 0.9 mg/dL (0.0-1.0); Blood Urea Nitrogen 13 mg/dL (9-16); Calcium 9.3 mg/dL (8.4-10.2); Carbon Dioxide 30 mmol/L (22-29); Chloride 102 mmol/L (96-108); Cholesterol 102 mg/dL; Estimated Average Glucose 131 mg/dL; Estimated Glomerular Filt Rate > 60; Glucose Fasting 139 mg/dL (60-99); HDL Cholesterol 38 mg/dL; Hemoglobin A1c % 6.2 %; LDL Cholesterol Calculated 39 mg/dl; Potassium 4.6 mmol/L (3.3-5.1); Sodium 139 mmol/L (135-145); Total Protein 6.3 g/dL (6.5-8.0); Triglycerides 129 mg/dL
[2022-08-26 12:06] LABS: PSA,Total (Free>4and<10) 0.08 ng/mL (0.00-4.00)
[2022-08-26 13:22] LABS: Creatinine Urine 197.57 mg/dL; Microalbum/Creatinine Ratio Ur 5.5 ug/mg cr
== END 2022-08-26 11:06 | disposition home or self-care (01) ==
LOC: HO.LNP 11:05
PROVIDERS: Visit Provider Internal Medicine
DX: Z00.00 Encounter for general adult medical examination without abnormal findings (principal); E78.6 Lipoprotein deficiency; E11.9 Type 2 diabetes mellitus without complications; E78.00 Pure hypercholesterolemia, unspecified; Z12.5 Encounter for screening for malignant neoplasm of prostate
CPT/HCPCS: 80053; 80061; 81001; 82043; 83036; 84153; 85025

== ENCOUNTER 2022-09-07 08:07 | Outpatient (REF) | payer MEDICARE, SELFPAY ==
--- NOTE | ~2022-09-07 | MR_ITS ---
EXAMINATION: MR KNEE WITHOUT CONTRAST, LEFT CLINICAL INFORMATION: Left knee pain COMPARISON: None TECHNIQUE: MRI of the knee without contrast was performed using routine sequences on a high-field scanner. FINDINGS: MENISCI: Medial Meniscus: Complex complete tearing at the root of the posterior horn with extrusion of the meniscal body. Lateral Meniscus: Intact LIGAMENTS: Cruciate: Mucoid degeneration and/or a small partial tear at the tibial insertion of the ACL. The posterior cruciate ligament is intact. Collateral: Intact edema of the popliteus muscle may represent a strain if recent injury. EXTENSOR MECHANISM: Intact ARTICULAR CARTILAGE/BONE: Patellofemoral Compartment: Cartilage thinning and surface irregularity throughout the medial patellar facet with focal full-thickness loss superiorly. Small marginal osteophytes. Medial Compartment: Cartilage thinning and surface irregularity weightbearing femoral condyle with small marginal osteophytes and peripheral subchondral marrow edema medially. Lateral Compartment: Normal JOINT FLUID AND BURSAE: Moderate joint effusion MR/MR knee LT wo con IMPRESSION: 1. Complex complete tearing at the root of the posterior horn of the medial meniscus with extrusion of the meniscal body. 2. Mucoid degeneration and/or small partial tear at the tibial insertion of the ACL. 3. [id number] patellofemoral/medial compartment osteoarthritis with a moderate joint effusion.
== END 2022-09-07 08:08 | disposition home or self-care (01) ==
LOC: HO.MRI 08:07
PROVIDERS: Visit Provider Internal Medicine
DX: S83.502A Sprain of unspecified cruciate ligament of left knee, initial encounter (principal)
CPT/HCPCS: 73721

== ENCOUNTER 2022-09-22 | Outpatient (REF) | payer MEDICARE, SELFPAY ==
--- NOTE | ~2022-09-22 | XR_ITS ---
EXAMINATION: XR KNEE AP STANDING. LEFT KNEE CLINICAL INFORMATION: Pain. COMPARISON: None TECHNIQUE: AP bilateral standing view of the knees was obtained. Left knee sunrise view. FINDINGS: AP bilateral knee: There is mild reduction in medial and lateral compartment joint space both knees with mild genu varus deformities slightly greater in the right. There is some periosteal thickening along the proximal medial tibia. No acute fracture, loose bodies seen. There is trace vascular calcification right SFA. Left knee: [place] view left knee reveals maintained patellofemoral compartment joint space without bony erosive changes or loose bodies. XR/XR knee LT 1V IMPRESSION: 1. Mild degenerative changes medial and lateral compartment both knees with mild genu varus deformities slightly greater in the right knee. 2. No acute fracture, loose bodies or bony erosive changes seen.
--- NOTE | ~2022-09-22 | XR_ITS ---
EXAMINATION: XR KNEE AP STANDING. LEFT KNEE CLINICAL INFORMATION: Pain. COMPARISON: None TECHNIQUE: AP bilateral standing view of the knees was obtained. Left knee sunrise view. FINDINGS: AP bilateral knee: There is mild reduction in medial and lateral compartment joint space both knees with mild genu varus deformities slightly greater in the right. There is some periosteal thickening along the proximal medial tibia. No acute fracture, loose bodies seen. There is trace vascular calcification right SFA. Left knee: [place] view left knee reveals maintained patellofemoral compartment joint space without bony erosive changes or loose bodies. XR/XR knee standing BI IMPRESSION: 1. Mild degenerative changes medial and lateral compartment both knees with mild genu varus deformities slightly greater in the right knee. 2. No acute fracture, loose bodies or bony erosive changes seen.
== END 2022-09-22 00:01 | disposition home or self-care (01) ==
LOC: HO.HOSX
PROVIDERS: Visit Provider Physician Assistant
DX: M17.12 Unilateral primary osteoarthritis, left knee (principal); M17.11 Unilateral primary osteoarthritis, right knee
CPT/HCPCS: 20610; 73560; 73565; 99202; J1020

== ENCOUNTER → 2022-12-01 13:57 | Outpatient (BNVA) | payer MEDICARE, SELFPAY | PROVIDERS: PCP Internal Medicine; Visit Provider Urology | DX: Z13.9 Encounter for screening, unspecified (principal); C61 Malignant neoplasm of prostate | CPT/HCPCS: 51798; 99202 ==

== ENCOUNTER 2023-01-21 09:39 | Outpatient (REF) | payer OTHER, SELFPAY ==
--- NOTE | ~2023-01-21 | CT_ITS ---
EXAMINATION: CT CHEST WITH CONTRAST CLINICAL INFORMATION: Follow up lung cancer. COMPARISON: CT chest 08/10/2022. TECHNIQUE: Multidetector volumetric CT imaging of the chest was obtained after the administration of 50 mL of Omnipaque 350 intravenous contrast without immediate adverse reactions. Axial MIP volume rendering provided. Sagittal and coronal reformatted images were obtained. This CT examination was performed using dose optimization techniques as appropriate, variously including the following: *Automated exposure control *Adjustment of mA and/or kV according to patient size (this includes techniques or standardized protocols for targeted exams where dose is matched to indication/reason for exam; i.e. extremities or head) *Use of iterative reconstruction technique DLP: 150 mGy-cm FINDINGS: NITROGLYCERIN NEUTRALIZER: Well inflated lungs. LUNGS: Lungs are well expanded and clear of acute pneumonic process. There are postsurgical changes left lower lobe superior segment with no recurrent mass or nodule seen. There is a 3 mm calcified nodule right upper lobe and a 4 mm calcified granuloma right lower lobe. No noncalcified nodules seen. Minimal atelectasis or scarring is seen in right lung base. MEDIASTINUM: The thyroid lobes are symmetric and normal. The central trachea and the bronchi widely patent. The heart size and great vessels are normal caliber. No abnormal-sized mediastinal or hilar lymph nodes seen. There is no pericardial effusion. Mild coronary artery calcifications are present. PLEURA: There is no pleural effusion. No pleural mass or thickening. AXILLA: Small shotty lymph nodes are seen in bilateral axilla. UPPER ABDOMEN: Visualized liver, spleen, pancreas and bilateral adrenal glands are unremarkable. OSSEOUS STRUCTURES: No aggressive lytic or sclerotic process seen. There is moderate ventral spondylosis mid and lower dorsal spine. CT/CT chest w IV con IMPRESSION: Surgical changes left lower lobe with no recurrent nodule or mass seen. There are 2 calcified granulomas. No abnormal mediastinal or hilar adenopathy. Fleischner guidelines were followed.
[2023-01-21 11:12] LABS: Alanine Aminotransferase 21 U/L (0-40); Albumin Level 4.3 g/dL (3.5-5.0); Alkaline Phosphatase 82 U/L (39-117); Anion Gap 15 (12-20); Aspartate Amino Transferase 11 U/L (5-37); Bilirubin Total 0.7 mg/dL (0.0-1.0); Blood Urea Nitrogen 13 mg/dL (9-16); Calcium 9.4 mg/dL (8.4-10.2); Carbon Dioxide 26 mmol/L (22-29); Chloride 102 mmol/L (96-108); Estimated Glomerular Filt Rate > 60; Glucose Random 109 mg/dL (60-115); Potassium 4.6 mmol/L (3.3-5.1); Sodium 138 mmol/L (135-145); Total Protein 6.3 g/dL (6.5-8.0)
[2023-01-21 11:38] LABS: Prostate Specific Antigen < 0.10 ng/mL (<0.05-4.0)
[2023-01-21] MEDS: iohexoL 350 MG/ML 100 ML INFUS..BTL IV (11:54)
== END 2023-01-21 09:40 | disposition home or self-care (01) ==
LOC: HO.CT 09:39
PROVIDERS: PCP Internal Medicine; Visit Provider Internal Medicine Medical Oncology
DX: Z12.5 Encounter for screening for malignant neoplasm of prostate (principal); C34.91 Malignant neoplasm of unspecified part of right bronchus or lung
CPT/HCPCS: 36415; 71260; 80053; 84153; Q9967

== ENCOUNTER 2023-02-22 11:10 | Outpatient (REF) | payer OTHER, SELFPAY ==
[2023-02-22 11:31] LABS: Alanine Aminotransferase 20 U/L (0-40); Albumin Level 4.1 g/dL (3.5-5.0); Alkaline Phosphatase 91 U/L (39-117); Aspartate Amino Transferase 14 U/L (5-37); Bilirubin Direct < 0.2 mg/dL (0.0-0.5); Bilirubin Total 0.6 mg/dL (0.0-1.0); Cholesterol 138 mg/dL; Glucose Fasting 139 mg/dL (60-99); HDL Cholesterol 44 mg/dL; LDL Cholesterol Calculated 67 mg/dl; Total Protein 6.2 g/dL (6.5-8.0); Triglycerides 137 mg/dL
[2023-02-22 11:47] LABS: Estimated Average Glucose 131 mg/dL; Hemoglobin A1c % 6.2 %
[2023-02-22 14:10] LABS: Reflex LDLD? No
== END 2023-02-22 11:11 | disposition home or self-care (01) ==
LOC: HO.LNP 11:10
PROVIDERS: Visit Provider Internal Medicine
DX: E78.00 Pure hypercholesterolemia, unspecified (principal); E11.9 Type 2 diabetes mellitus without complications
CPT/HCPCS: 80061; 80076; 82947; 83036

== ENCOUNTER → 2023-03-25 08:42 | Outpatient (BNVA) | payer OTHER, SELFPAY | PROVIDERS: PCP Internal Medicine; Visit Provider Surgery | DX: C34.92 Malignant neoplasm of unspecified part of left bronchus or lung (principal) | CPT/HCPCS: 99212 ==

== ENCOUNTER 2023-06-02 09:25 | Outpatient (AMB) | payer MEDICARE, SELFPAY ==
--- NOTE | 2023-06-02 08:06 | A.OFFVIS_ITS ---
Intake Intake Visit Reasons: 6m follow up/PSA Intake Note: * Patient presents today for a 6mo PSA follow-up. * Meds- None * Allergies to Antibiotic- None * Blood Thinner- None * PVR- 45ml Lacquer Maker Required: No Accompanied by: Self / Same As Patient Allergies No Known Allergies Allergy (Unknown, Verified 06/02/23 09:38) HPI HPI Comments History of Present Illness Details Homero is a 72-year-old male who presents to the office for 6-month followup and discussion PSA results. LV?12/01/22--71 year old azeri speaking gentleman, history obtained with help of certified acid concentrator. He has H/O Prostate Cancer, treated in [place]. H/o cigarette use quit 1997, FH - father -prostate cancer He states he is receiving treatment with Lupron by oncology. Review of the oncology office visit notes: He received Lupron on 08/10/2021. PSA from 07/08 is 0.07. Oncology indicates he will continue on the Lupron therapy. pending dose on 01/28/23. The patient is also being treated for lung adenocarcinoma by Oncology The patient denies lower urinary tract symptoms. He feels that he is emptying his bladder adequately Evaluation today urinalysis, no signs of infection, bladder scan PVR 0 mL Plan-he will continue Lupron treatment with Oncology, will continue to monitor PSA and prostate exams 06/02/23-- HPI: As noted above. The patient is a Fijian speaking male. His friend was present during the visit who interpreted for him. The patient is being administered with Lupron after every 6-months with his oncologist. Denies UTI or blood in the urine. States adhering to his prescribed medications. PSA results reviewed?01/28/23-- <0.10, 01/21/23--<0.10. Evaluation today: UA-- Blood: negative, leukocytes: negative. Bladder scan PVR: 45 mL. Plan: PSA blood work 2-weeks prior was ordered. Follow-up in January 2024. PFSH Medical History Adenocarcinoma of right lung (~2020) Bronchitis Erectile dysfunction due to arterial insufficiency History of prostate cancer Low HDL (under 40) Personal history of nicotine dependence Pure hypercholesterolemia Rising PSA level Sciatic leg pain Type 2 diabetes mellitus without complication Surgical History History of colonoscopy History of eye surgery History of lobectomy of lung History of lung biopsy History of lung surgery History of prostate biopsy Family History Father Diabetes Prostate cancer Alzheimer disease Sister Colon cancer Social History Household Members: None Housing: Apartment Are you a primary home care rn to a significant other at home: No Do you presently have visiting nurse or other home services: No Alcohol intake: current Alcohol intake frequency: a few times a month Alcohol type: beer Patient Tobacco Use Status: Former Tobacco user Quit Date: 1997 Years Smoked: 48 service: No Current occupational status: retired Review of Systems Const All systems reviewed & are unremarkable except as noted in HPI and below Reports no additional complaints Eyes Reports no additional complaints ENT Denies neck pain Card Denies leg edema Resp Reports no additional complaints GI Denies constipation Musc Reports no additional complaints and Denies neck pain Skin/Breast Denies rash and Denies unusual bruising Neuro Reports no additional complaints Psych Reports no additional complaints Endo Reports no additional complaints Tk/Lymph Reports no additional complaints Aller/Immun Reports no additional complaints Office Procedures Post Void Residual Post Residual Void Post Void Residual (PVR): 45 [id number] Void Residual by ultrasound Results AMB Urinalysis, Automated UA Leukoctes 0 Anne/uL Last Edit by GAB Kenny on 06/02/23 09:40 UA Nitrite Negative Last Edit by GAB Kenny on 06/02/23 09:40 UA Urobilinogen 0.2 mg/dL Last Edit by GAB Kenny on 06/02/23 09:4 0 UA Protein 0 mg/dL Last Edit by GAB Kenny on 06/02/23 09:40 UA pH 6.0 Last Edit by GAB Kenny on 06/02/23 09:40 UA Blood 0 Evaristo/uL Last Edit by GAB Kenny on 06/02/23 09:40 UA Specific [place] 1.030 Last Edit by GAB Kenny on 06/02/23 09: 40 UA Ketone Negative Last Edit by GAB Kenny on 06/02/23 09:40 UA Bilirubin 0 mg/dL Last Edit by WILMA KennyA on 06/02/23 09:40 UA Glucose 0 mg/dL Last Edit by GAB Kenny on 06/02/23 09:40 Results Reviewed Results Reviewed: Laboratory Last Values Urine pH (Auto) 6.0 06/02/23 09:32 Specific [place] (Auto) 1.030 06/02/23 09:32 Urine Protein (Auto) 0 mg/dL 06/02/23 09:32 Glucose (UA)(Auto) 0 mg/dL 06/02/23 09:32 Urine Ketones (Auto) Negative 06/02/23 09:32 Urine Blood (Auto) 0 Evaristo/uL 06/02/23 09:32 Urine Nitrite (Auto) Negative 06/02/23 09:32 Urine Bilirubin (Auto) 0 mg/dL 06/02/23 09:32 Urine Urobilinogen (Auto) 0.2 mg/dL 06/02/23 09:32 Leukocyte Esterase (Auto) 0 Anne/uL 06/02/23 09:32 Assessment & Plan Assessment & Plan (1) Prostate cancer: Code(s): C61 - Malignant neoplasm of prostate Plan PSA blood work 2-weeks prior was ordered. Follow-up in January 2024. Orders: Orders PSA,Total (Free>4and<10) 7 Months C61 - Malignant neoplasm of prostate AMB Urinalysis Automated Today Z13.9 - Encounter for screening, unspecified AMB Post Void Residual by ultrasound Today N39.8 - Other specified disorders of urinary system Medications: Discontinued osimertinib 80 mg PO DAILY 90 tabs 4RF Patient Instructions: The patient had an opportunity to ask questions regarding treatment plan. All questions were answered. Laboratory studies and physical exam results were discussed and reviewed in detail. No major barriers to understanding were identified. The patient expressed understanding and agreement with the above treatment plan. The patient is aware they should contact our office by phone for worsening of their current condition or the appearance of new symptoms. Compliance is en couraged with any medications and followup testing that is ordered. It is a privilege to be allowed the opportunity to participate in the urologic care of your patient. If you have any questions or concerns regarding treatment for the above conditions please do not hesitate to contact me. The office telephone contact is [phone]. This note is constructed in part using voice recognition software. While every effort has been made to ensure accuracy blueprint tracer errors may have been included. Yours sincerely, Amy Contreras MD Coding Level of Care Code Est Pt Level 3 (94435) Diagnoses Prostate cancer C61 CPT Codes Post Residual Void - PVR CPT Code: 84479-Hikp Void Residual by ultrasound ([id number])
== END 2023-06-02 09:55 | disposition home or self-care (01) ==
PROVIDERS: Visit Provider Urology
DX: C61 Malignant neoplasm of prostate (principal)
CPT/HCPCS: 99213

== ENCOUNTER → 2023-06-02 09:25 | Outpatient (BNVA) | payer MEDICARE, SELFPAY | PROVIDERS: Visit Provider Urology | DX: C61 Malignant neoplasm of prostate (principal); N39.8 Other specified disorders of urinary system | CPT/HCPCS: 51798; 99212 ==

== ENCOUNTER 2023-09-26 11:21 | Outpatient (REF) | payer MEDICARE, SELFPAY ==
[2023-09-26 11:25] LABS: MANUAL DIFF FLAG NO
[2023-09-26 12:17] LABS: Basophils Percent Auto 0.5 % (0-2); Eosinophils Absolute Auto 0.1 X10*3/uL (0.0-0.4); Eosinophils Percent Auto 2.2 % (0-4); Hematocrit 38.2 % (42.0-52.0); Hemoglobin 12.8 g/dl (14.0-18.0); Imm Gran Abs Auto 0.02 X10*3/uL (0.00-0.03); Imm Gran Pct Auto 0.3 % (0.0-0.4); Lymphocytes Absolute Auto 1.4 X10*3/uL (1.2-4.9); Lymphocytes Percent Auto 24.2 % (20-40); Mean Corpuscular HGB Conc 33.5 g/dl (31.0-36.0); Mean Corpuscular Volume 95.5 fL (80.0-98.0); Mean Platelet Volume 10.5 fL (9.4-12.4); Monocytes Absolute Auto 0.5 X10*3/uL (0.1-1.2); Monocytes Percent Auto 7.9 % (2-11); Neutrophils Absolute Auto 3.9 x10*3/uL (2.0-8.3); Neutrophils Percent Auto 64.9 % (45-73); Platelet Count 222 X10*3/uL (160-400); Red Cell Distribution Width 12.2 % (11.0-16.0)
[2023-09-26 12:20] LABS: Appearance Urine Clear; Color Urine Yellow; Glucose Urine UA Negative (Negative); Leukocyte Esterase Urine Negative (Negative); Nitrite Urine Negative (Negative); Specific Gravity - Urine 1.025 (1.005-1.025); Urine Blood Negative (Negative); Urine Ketones Negative (Negative); Urine Protein Negative (Neg-Trace)
[2023-09-26 12:29] LABS: Bacteria Urine None Seen (None Seen); Hyaline Casts Urine 0-2 /LPF (0-2); RBC Urine 0-2 /HPF (0-2); Squamous Epithelial Cell Urine 0-2 /HPF (0-2); WBC Urine 0-5 /HPF (0-5)
[2023-09-26 12:31] LABS: Estimated Average Glucose 151 mg/dL; Hemoglobin A1C 151.0787 umol/L; Hemoglobin A1c % 6.9 % (<6.0)
[2023-09-26 12:55] LABS: Alanine Aminotransferase 33 U/L (0-40); Albumin Level 4.2 g/dL (3.5-5.0); Alkaline Phosphatase 76 U/L (39-117); Anion Gap 10 (12-20); Aspartate Amino Transferase 19 U/L (5-37); Bilirubin Total 0.4 mg/dL (0.0-1.0); Blood Urea Nitrogen 15 mg/dL (9-16); Calcium 9.1 mg/dL (8.4-10.2); Carbon Dioxide 29 mmol/L (22-29); Chloride 103 mmol/L (96-108); Cholesterol 111 mg/dL (<200); Estimated Glomerular Filt Rate > 60; Glucose Fasting 142 mg/dL (60-99); HDL Cholesterol 36 mg/dL (>40); LDL Cholesterol Calculated 51 mg/dL (<100); PSA,Total (Free>4and<10) < 0.10 ng/mL (0.00-4.00); Potassium 4.5 mmol/L (3.3-5.1); Sodium 137 mmol/L (135-145); Total Protein 6.6 g/dL (6.5-8.0); Triglycerides 124 mg/dL (<150)
[2023-09-26 12:57] LABS: Creatinine Urine 133.82 mg/dL; Microalbum/Creatinine Ratio Ur 4.4 ug/mg cr (<30)
== END 2023-09-26 11:22 | disposition home or self-care (01) ==
LOC: HO.LNP 11:21
PROVIDERS: Visit Provider Internal Medicine
DX: Z00.00 Encounter for general adult medical examination without abnormal findings (principal); Z12.5 Encounter for screening for malignant neoplasm of prostate; E11.9 Type 2 diabetes mellitus without complications
CPT/HCPCS: 80053; 80061; 81001; 82043; 82570; 83036; 84153; 85025

== ENCOUNTER 2023-10-21 10:00 | Outpatient (REF) | payer MEDICARE, SELFPAY ==
--- NOTE | ~2023-10-21 | CT_ITS ---
EXAMINATION: CT CHEST WITH CONTRAST CLINICAL INFORMATION: Lung adenocarcinoma COMPARISON: 01/21/2023 TECHNIQUE: Multidetector volumetric CT imaging of the chest was obtained after the administration of 65 mL of Omnipaque 350 intravenous contrast without immediate adverse reactions. Axial MIP volume rendering provided. Sagittal and coronal reformatted images were obtained. This CT examination was performed using dose optimization techniques as appropriate, variously including the following: *Automated exposure control *Adjustment of mA and/or kV according to patient size (this includes techniques or standardized protocols for targeted exams where dose is matched to indication/reason for exam; i.e. extremities or head) *Use of iterative reconstruction technique DLP: 160 mGy-cm FINDINGS: ROBOTYPE OPERATOR: There is widening of the mediastinum LUNGS: There is calcified nodule seen in the right upper lobe unchanged since previous study, seen on image 71 series 6. There is calcification along the fissure on the left. There are no lung nodules. No evidence of consolidation MEDIASTINUM: There is no mediastinal lymphadenopathy. No pericardial effusion seen. Coronary artery calcifications present. Thecal sutures seen in the right hilum. PLEURA: There is no pleural effusion. No pleural mass or thickening. AXILLA: No lymphadenopathy. UPPER ABDOMEN: There is cholelithiasis. OSSEOUS STRUCTURES: There are no lytic or blastic lesions. The changes of mild degenerative spondylosis. CT/CT chest w IV con IMPRESSION: No evidence of metastasis. Calcified granuloma in the right lung. Fleischner guidelines were followed.
[2023-10-21] MEDS: iohexoL 350 MG/ML 100 ML INFUS..BTL IV (10:36)
== END 2023-10-21 10:01 | disposition home or self-care (01) ==
LOC: HO.CT 10:00
PROVIDERS: PCP Internal Medicine; Visit Provider Internal Medicine Medical Oncology
DX: C34.91 Malignant neoplasm of unspecified part of right bronchus or lung (principal)
CPT/HCPCS: 71260; Q9967

== ENCOUNTER 2024-01-25 10:01 | Outpatient (REF) | payer OTHER, SELFPAY ==
[2024-01-25 10:15] LABS: MANUAL DIFF FLAG NO
[2024-01-25 10:19] LABS: Basophils Percent Auto 0.4 % (0-2); Eosinophils Absolute Auto 0.1 X10*3/uL (0.0-0.4); Eosinophils Percent Auto 1.6 % (0-4); Hematocrit 39.4 % (42.0-52.0); Hemoglobin 13.5 g/dl (14.0-18.0); Imm Gran Abs Auto 0.01 X10*3/uL (0.00-0.03); Imm Gran Pct Auto 0.2 % (0.0-0.4); Lymphocytes Absolute Auto 1.5 X10*3/uL (1.2-4.9); Mean Corpuscular HGB Conc 34.3 g/dl (31.0-36.0); Mean Corpuscular Hemoglobin 31.4 pg (27.0-33.0); Mean Corpuscular Volume 91.6 fL (80.0-98.0); Mean Platelet Volume 9.4 fL (9.4-12.4); Monocytes Absolute Auto 0.4 X10*3/uL (0.1-1.2); Monocytes Percent Auto 8.2 % (2-11); Neutrophils Absolute Auto 2.9 x10*3/uL (2.0-8.3); Neutrophils Percent Auto 59.6 % (45-73); Platelet Count 217 X10*3/uL (160-400); Red Cell Distribution Width 12.5 % (11.0-16.0); White Blood Count 4.9 X10*3/uL (4.8-10.8)
[2024-01-25 10:36] LABS: Alanine Aminotransferase 65 U/L (0-40); Albumin Level 4.4 g/dL (3.5-5.0); Alkaline Phosphatase 81 U/L (39-117); Anion Gap 12 (12-20); Aspartate Amino Transferase 29 U/L (5-37); Bilirubin Total 0.8 mg/dL (0.0-1.0); Blood Urea Nitrogen 13 mg/dL (9-16); Calcium 9.4 mg/dL (8.4-10.2); Carbon Dioxide 28 mmol/L (22-29); Chloride 102 mmol/L (96-108); Estimated Glomerular Filt Rate > 60; Glucose Random 175 mg/dL (60-115); Potassium 4.5 mmol/L (3.3-5.1); Sodium 137 mmol/L (135-145); Total Protein 6.7 g/dL (6.5-8.0)
[2024-01-25 11:00] LABS: Prostate Specific Antigen Scr < 0.10 ng/mL (<0.05-4.0)
[2024-01-25 11:37] LABS: PSA,Total (Free>4and<10) < 0.10 ng/mL (0.00-4.00)
== END 2024-01-25 10:02 | disposition home or self-care (01) ==
LOC: HO.LAB 10:01
PROVIDERS: Internal Medicine Medical Oncology; Visit Provider Urology
DX: C61 Malignant neoplasm of prostate (principal); C34.92 Malignant neoplasm of unspecified part of left bronchus or lung; Z12.5 Encounter for screening for malignant neoplasm of prostate
CPT/HCPCS: 36415; 80053; 84153; 85025

== ENCOUNTER 2024-01-30 08:39 | Outpatient (AMB) | payer OTHER, SELFPAY ==
--- NOTE | 2024-01-30 08:44 | MHC.OFFVIS ---
Intake Intake Visit Reasons: prostate cancer on lupron/PSA Intake Note: Patient presents today for a follow-up on prostate cancer/ PSA Meds- None Allergies to Antibiotic- None Blood Thinner- None Post Void Residual: 11ml Patient stated he is feeling very well and he is having a treatment every six months, for his prostate cancer Control Room Tender Required: No Accompanied by: grandaugther Allergies No Known Allergies Allergy (Unknown, Verified 01/30/24 08:55) Medication List - Last Reconciled 01/30/24 by Amy Contreras MD atorvastatin 20 mg PO DAILY citalopram 10 mg PO DAILY metformin 1,000 mg PO BID HPI HPI Comments History of Present Illness Details 01/30/2024--Homero is a 73-year-old male who is followed due to history of prostate cancer. The patient is Finnish-speaking is here with his granddaughter. He has H/O Prostate Cancer, diagnosed in [place]. H/o cigarette use quit 1997, FH - father -prostate cancer. The patient is also being treated for lung adenocarcinoma by Oncology. He is receiving GH Rh agonist therapy with Oncology in review of the chart he received Eligard subQ on 07/29/2023. The patient states he is scheduled for a hormone injection later today. He states he is urinating well denies irritative voiding symptoms. I have reviewed PSA 01/25/2024--less than 0.10 ng/mL. Review of chart: 06/02/2023--Homero is a 72-year-old male who presents to the office for 6-month followup and discussion PSA results. The patient is a Finnish speaking male. His friend was present during the visit who interpreted for him. The patient is being administered with Lupron after every 6-months with his oncologist. Denies UTI or blood in the urine. States adhering to his prescribed medications. PSA results reviewed?01/28/23-- <0.10, 01/21/23--<0.10. Evaluation today: UA-- Blood: negative, leukocytes: negative. Bladder scan PVR: 45 mL. Plan---PSA blood work 2-weeks prior was ordered. Follow-up in January 2024. 12/01/22--71 year old wallisian speaking gentleman, history obtained with help of certified finger cobbler. He has H/O Prostate Cancer, treated in [place]. H/o cigarette use quit 1997, FH - father -prostate cancer He states he is receiving treatment with Lupron by oncology. Review of the oncology office visit notes: He received Lupron on 08/10/2021. PSA from 07/08 is 0.07. Oncology indicates he will continue on the Lupron therapy. pending dose on 01/28/23. The patient is also being treated for lung adenocarcinoma by Oncology The patient denies lower urinary tract symptoms. He feels that he is emptying his bladder adequately Evaluation today urinalysis, no signs of infection, bladder scan PVR 0 mL Plan-he will continue Lupron treatment with Oncology, will continue to monitor PSA and prostate exams 01/30/2024--PLAN: Continue to monitor PSA. PSA q 6 months He is receiving GH Rh agonist therapy with Oncology Follow-up with me in the office in 1 year as long as things are stable [facility] Medical History Rising PSA level Bronchitis Sciatic leg pain Erectile dysfunction due to arterial insufficiency Pure hypercholesterolemia Low HDL (under 40) Personal history of nicotine dependence Type 2 diabetes mellitus without complication History of prostate cancer Adenocarcinoma of right lung (~2020) Surgical History History of lung surgery History of lobectomy of lung History of lung biopsy History of eye surgery History of prostate biopsy History of colonoscopy Family History Father Diabetes Prostate cancer Alzheimer disease Sister Colon cancer Social History Household Members: None Housing: Apartment Are you a primary day care assistant to a significant other at home: No Do you presently have visiting nurse or other home services: No Alcohol intake: current Alcohol intake frequency: a few times a month Alcohol type: beer Patient Tobacco Use Status: Former Tobacco user Quit Date: 1997 Years Smoked: 48 service: No Current occupational status: retired Review of Systems Const All systems reviewed & are unremarkable except as noted in HPI and below Reports no additional complaints Eyes Reports no additional complaints ENT Denies neck pain Card Denies leg edema Resp Reports no additional complaints GI Denies constipation Musc Reports no additional complaints and Denies neck pain Skin/Breast Denies rash and Denies unusual bruising Neuro Reports no additional complaints Psych Reports no additional complaints Endo Reports no additional complaints Tk/Lymph Reports no additional complaints Aller/Immun Reports no additional complaints Office Procedures Post Void Residual Post Residual Void Post Void Residual (PVR): 11 [id number] Void Residual by ultrasound Results AMB Urinalysis, Automated UA Leukoctes 0 Anne/uL Last Edit by Ijeoma Gtzel[facility] on 01/30/24 08:57 UA Nitrite Negative [facility] on 01/30/24 08:57 UA Urobilinogen 0.2 mg/dL Last Edit by [facility], [facility] on 01/30/24 08:57 UA Protein 15 mg/dL [facility], [facility] on 01/30/24 08:57 UA pH 6.0 Last Edit by [facility], [facility] on 01/30/24 08:57 UA Blood 0 Evaristo/uL Last Edit by [facility], [facility] on 01/30/24 08:57 UA Specific [place] 1.025 Last Edit by [facility], [facility] on 01/30/24 08:57 UA Ketone Negative Last Edit [facility], [facility] on 01/30/24 08:57 UA Bilirubin 0 mg/dL Last Edit [facility], [facility] on 01/30/24 08:57 UA Glucose 0 mg/dL Last Edit [facility], [facility] on 01/30/24 08:57 Results Reviewed Results Reviewed: Laboratory Last Values Urine pH (Auto) 6.0 01/30/24 08:47 Specific [place] (Auto) 1.025 01/30/24 08:47 Urine Protein (Auto) 15 mg/dL 01/30/24 08:47 Glucose (UA)(Auto) 0 mg/dL 01/30/24 08:47 Urine Ketones (Auto) Negative 01/30/24 08:47 Urine Blood (Auto) 0 Evaristo/uL 01/30/24 08:47 Urine Nitrite (Auto) Negative 01/30/24 08:47 Urine Bilirubin (Auto) 0 mg/dL 01/30/24 08:47 Urine Urobilinogen (Auto) 0.2 mg/dL 01/30/24 08:47 Leukocyte Esterase (Auto) 0 Anne/uL 01/30/24 08:47 Assessment & Plan Assessment & Plan (1) Prostate cancer: Code(s): C61 - Malignant neoplasm of prostate Plan Continue to monitor PSA. PSA q 6 months He is receiving GH Rh agonist therapy with Oncology Follow-up with me in the office in 1 year as long as things are stable Orders: Orders AMB Post Void Residual by ultrasound Today R33.9 - Retention of urine, unspecified AMB Urinalysis Automated Today R33.9 - Retention of urine, unspecified Patient Instructions: The patient had an opportunity to ask questions regarding treatment plan. All questions were answered. Laboratory studies and physical exam results were discussed and reviewed in detail. No major barriers to understanding were identified. The patient expressed understanding and agreement with the above treatment plan. The patient is aware they should contact our office by phone for worsening of their current condition or the appearance of new symptoms. Compliance is encouraged with any medications and followup testing that is ordered. It is a privilege to be allowed the opportunity to participate in the urologic care of your patient. If you have any questions or concerns regarding treatment for the above conditions please do not hesitate to contact me. The office telephone contact is [phone]. This note is constructed in part using voice recognition software. While every effort has been made to ensure accuracy electrician crane maintenance errors may have been included. Yours sincerely, Amy Contreras MD Coding Level of Care Code Est Pt Level 4 (74107) Diagnoses Prostate cancer C61 CPT Codes Post Residual Void - PVR CPT Code: 03865-[id number] Void Residual by ultrasound ([id number])
== END 2024-01-30 09:21 | disposition home or self-care (01) ==
PROVIDERS: PCP Internal Medicine; Visit Provider Urology
DX: R33.9 Retention of urine, unspecified (principal); C61 Malignant neoplasm of prostate
CPT/HCPCS: 99214

== ENCOUNTER → 2024-01-30 08:39 | Outpatient (BNVA) | payer OTHER, SELFPAY | PROVIDERS: PCP Internal Medicine; Visit Provider Urology | DX: C61 Malignant neoplasm of prostate (principal) | CPT/HCPCS: 51798; 81003; 99212 ==

== ENCOUNTER 2025-02-25 08:59 | Outpatient (AMB) | payer OTHER, SELFPAY ==
--- NOTE | 2025-02-25 09:10 | MHC.OFFVIS ---
Intake Visit Reasons: 1y/PSA Intake Note: Patient presents today for a 1 year follow-up/ PSA Urology Meds- None Allergies to Antibiotic- None Blood Thinner- None Bedspread Seamer Required: No Accompanied by: grandaugther Allergies No Known Allergies Allergy (Unknown, Verified 02/25/25 09:15) Medication List - Last Reconciled 02/25/25 by Amy Contreras MD atorvastatin 20 mg PO DAILY citalopram 10 mg PO DAILY metformin 1,000 mg PO BID HPI Comments Details: 02/25/25--Homero is a 74-year-old male who is followed due to history of prostate cancer. The patient is Citizen Of [place]-speaking is here with his granddaughter. He has H/O Prostate Cancer, diagnosed in [place]. Reviewed PSA - 01/29/25-<0.10 ng/mL. He denies irritative voiding symptoms, on hormonal therapy with Oncology. 01/30/2024--Homero is a 73-year-old male who is followed due to history of prostate cancer. The patient is Citizen Of [place]-speaking is here with his granddaughter. He has H/O Prostate Cancer, diagnosed in [place]. H/o cigarette use quit 1997, FH - father -prostate cancer. The patient is also being treated for lung adenocarcinoma by Oncology. He is receiving GH Rh agonist therapy with Oncology in review of the chart he received Eligard subQ on 07/29/2023. The patient states he is scheduled for a hormone injection later today. He states he is urinating well denies irritative voiding symptoms. I have reviewed PSA 01/25/2024--less than 0.10 ng/mL. 06/02/2023--Homero is a 72-year-old male who presents to the office for 6-month followup and discussion PSA results. The patient is a Citizen Of [place] speaking male. His friend was present during the visit who interpreted for him. The patient is being administered with Lupron after every 6-months with his oncologist. Denies UTI or blood in the urine. States adhering to his prescribed medications. PSA results reviewed?01/28/23-- <0.10, 01/21/23--<0.10. Evaluation today: UA-- Blood: negative, leukocytes: negative. Bladder scan PVR: 45 mL. Plan---PSA blood work 2-weeks prior was ordered. Follow-up in January 2024. 12/01/22--71 year old czech speaking gentleman, history obtained with help of certified health director. He has H/O Prostate Cancer, treated in [place]. H/o cigarette use quit 1997, FH - father -prostate cancer He states he is receiving treatment with Lupron by oncology. Review of the oncology office visit notes: He received Lupron on 08/10/2021. PSA from 07/08 is 0.07. Oncology indicates he will continue on the Lupron therapy. pending dose on 01/28/23. The patient is also being treated for lung adenocarcinoma by Oncology The patient denies lower urinary tract symptoms. He feels that he is emptying his bladder adequately Evaluation today urinalysis, no signs of infection, bladder scan PVR 0 mL Plan-he will continue Lupron treatment with Oncology, will continue to monitor PSA and prostate exams [facility] Medical History Rising PSA level Bronchitis Sciatic leg pain Erectile dysfunction due to arterial insufficiency Pure hypercholesterolemia Low HDL (under 40) Personal history of nicotine dependence Type 2 diabetes mellitus without complication History of prostate cancer Adenocarcinoma of right lung (~2020) Surgical History History of lung surgery History of lobectomy of lung History of lung biopsy History of eye surgery History of prostate biopsy History of colonoscopy Family History Father Diabetes Prostate cancer Alzheimer disease Sister Colon cancer Social History Household Members: None Housing: Apartment Are you a primary career orientation teacher to a significant other at home: No Do you presently have visiting nurse or other home services: No Alcohol intake: current Alcohol intake frequency: a few times a month Alcohol type: beer Patient Tobacco Use Status: Former Tobacco user Years Smoked: 48 service: No Current occupational status: retired Review of Systems Const All systems reviewed & are unremarkable except as noted in HPI and below Reports no additional complaints Eyes Reports no additional complaints ENT Reports no additional complaints Card Reports no additional complaints Resp Reports no additional complaints GI Reports no additional complaints Reports as per HPI Musc Reports no additional complaints Skin/Breast Reports system reviewed and no additional complaints, except as documented Neuro Reports no additional complaints Psych Reports no additional complaints Endo Reports no additional complaints Tk/Lymph Reports no additional complaints Aller/Immun Reports no additional complaints Assessment & Plan Assessment & Plan (1) Prostate cancer: Code(s): C61 - Malignant neoplasm of prostate Category: Medical Plan Continue to monitor PSA. He is receiving GH Rh agonist therapy with Oncolog Patient Instructions: The patient had an opportunity to ask questions regarding treatment plan. The patient expressed understanding and agreement with the above treatment plan. The patient is aware they should contact our office by phone for worsening of their current condition or the appearance of new symptoms. Compliance is encouraged with any medications and followup testing that is ordered. It is a privilege to be allowed the opportunity to participate in the urologic care of your patient. If you have any questions or concerns regarding treatment for the above conditions please do not hesitate to contact me. The office telephone contact is [phone]. This note is constructed in part using voice recognition software. While every effort has been made to ensure accuracy electrical technician instructor errors may have been included. Yours sincerely, Amy Contreras MD Coding Level of Care Code Est Pt Level 3 (80585) Complex EM visit Add On G2211 Diagnoses Prostate cancer C61
--- OUTSIDE RECORDS SUMMARY | 2025-02-25 09:53 | XMS_ITS | Clinical Summary ---
Author Organization [facility] Address [address] [place] [address] Care Team Providers Care Ship Design Teacher Name Role Phone Clifton Bennett MD Primary Care Provider Surgical History Surgery Date Site/Laterality Comments EYE SURGERY PROCEDURE: HISTORICAL EYE SURGERY OTHER SURGICAL HISTORY PROCEDURE: [place] BIOPSY PROSTATE INCISIONAL ANY APPROACH Medical History Medical History Date Comments Lung cancer (CMS/HCC) DX:Lung ca ncer (HCC) Mixed hyperlipidemia DX:Mixed hy perlipidemia DMII (diabetes mellitus, typ e 2) (CMS/HCC) DX:DMII (diabetes mellitus, type 2) (HCC) Prostate cancer (CMS/HCC) DX:Pro state cancer (HCC) Glaucoma DX:Glaucoma Family History Medical History Relation Name Comments Colon cancer Father Ovarian cancer Sister Relation Name Status Comments Father Sister Social History Tobacco Use Types Packs/Day Years Used Date Smoking Tobacco: Former Cigarettes Q uit: 08/21/1998 Smokeless Tobacco: Never Alcohol Use Standard Drinks/Week Comments Never 0 (1 standard drink = 0.6 oz pur e alcohol) Sex and Gender Information Value Date Recorded Sex Assigned at Not on file Legal Sex Male 9:04 AM EST Gender Identity Not on file Sexual Orientation Not on file Obstetrics History Last Filed Vital Signs Vital Sign Reading Time Taken Comments Blood Pressure 149/81 07/02/2024 10:19 AM EDT Sitting L Arm Pulse 94 07/02/2024 10:19 AM EDT Temperature - - Respiratory Rate - - Oxygen Saturation - - Inhaled Oxygen Concentration - - Weight 78.3 kg (172 lb 9.6 oz) 07/02/2024 10:19 AM EDT Height 162.6 cm (5' 4 ) 07/02/2024 10:1 9 AM EDT Body Mass Index 29.63 07/02/2024 10:19 AM EDT Plan of Treatment Health Maintenance Due Date Last Done Comments Diabetes: Annual GFR (Glomer ular Filtration Rate) 1949 COVID-19 Vaccine (#1) 1954 Diabetes: Annual Foot Exam 1959 Diabetes: Annual Retina Eye Exam 1959 DTaP,Tdap,and Td Vaccines (1 - Tdap) 1968 Pneumococcal Vaccine: 50+ Ye ars (1 of 2 - PCV) 1968 Zoster Vaccines (1 of 2) 1968 Abdominal Aortic Aneurysm (A AA) Screen 10/24/2022 Cholesterol Screening (Lipid Panel) 10/24/2022 Colorectal Cancer Screening: Colonoscopy 10/24/2022 Depression Screening 10/24/2022 Falls Risk Assessment 10/24/2022 Hepatitis C Screening 10/24/2022 Social Influencers of Health Screening 10/24/2022 Influenza Vaccine (#1) 2024 Diabetes: Annual Urine Albumin-Creatinine Ratio (uACR) 09/03/2024 Diabetes: Blood Sugar Contro l Test (HGBA1C) 09/03/2024 RSV Immunization Adult Patie nts (1 - 1-dose 75+ series) 2024 HIB Vaccines Aged Out No longer eligi ble based on patient's age to complete this topic HPV Vaccines Aged Out No longer eligi ble based on patient's age to complete this topic Hepatitis A Vaccines Aged Out No long er eligible based on patient's age to complete this topic Hepatitis B Vaccines Aged Out No long er eligible based on patient's age to complete this topic IPV Vaccines Aged Out No longer eligi ble based on patient's age to complete this topic MMR Vaccines Aged Out No longer eligi ble based on patient's age to complete this topic Meningococcal ACWY Vaccine Aged Out N o longer eligible based on patient's age to complete this topic Meningococcal B Vacine Aged Out No lo nger eligible based on patient's age to complete this topic RSV Immunization Patients Un jon 20 months Aged Out No longer eligible b ased on patient's age to complete this topic Varicella Vaccines Aged Out No longer eligible based on patient's age to complete this topic Care Teams Ship Design Teacher Relationship Specialty Start Date End Date Clifton Bennett MD [address] [place] [address] PCP - General 12/28/23
== END 2025-02-25 09:41 | disposition home or self-care (01) ==
LOC: HO.HUSH 08:59
PROVIDERS: PCP Internal Medicine; Visit Provider Urology
DX: C61 Malignant neoplasm of prostate (principal)
CPT/HCPCS: 99213; G2211

== ENCOUNTER → 2025-02-25 08:59 | Outpatient (BNVA) | payer OTHER, SELFPAY | PROVIDERS: PCP Internal Medicine; Visit Provider Urology | DX: C61 Malignant neoplasm of prostate (principal) | CPT/HCPCS: 99212 ==

== ENCOUNTER 2025-09-09 10:28 | Outpatient (REF) | payer OTHER, SELFPAY ==
[2025-09-09 10:43] LABS: MANUAL DIFF FLAG NO
[2025-09-09 11:24] LABS: Hematocrit 41.7 % (42.0-52.0); Hemoglobin 13.8 g/dl (14.0-18.0); Imm Gran Abs Auto 0.01 X10*3/uL (0.00-0.03); Imm Gran Pct Auto 0.2 % (0.0-0.4); Lymphocytes Absolute Auto 1.6 X10*3/uL (1.2-4.9); Mean Corpuscular HGB Conc 33.1 g/dl (31.0-36.0); Mean Corpuscular Hemoglobin 31.5 pg (27.0-33.0); Mean Corpuscular Volume 95.2 fL (80.0-98.0); NRBC Abs Auto 0.000 X10*3/uL (0.0-0.012); NRBC Pct Auto 0.0 /100WBC (0.0-0.2); Platelet Count 214 X10*3/uL (160-400); Red Blood Count 4.38 X10*6/uL (4.60-5.80); White Blood Count 5.1 X10*3/uL (4.8-10.8)
[2025-09-09 11:50] LABS: Alanine Aminotransferase 68 U/L (0-40); Albumin Level 4.5 g/dL (3.5-5.0); Alkaline Phosphatase 70 U/L (39-117); Anion Gap 13 (12-20); Aspartate Amino Transferase 26 U/L (5-37); Blood Urea Nitrogen 16 mg/dL (9-16); Calcium 9.0 mg/dL (8.4-10.2); Carbon Dioxide 27 mmol/L (22-29); Chloride 103 mmol/L (96-108); Estimated Glomerular Filt Rate > 60; Potassium 4.8 mmol/L (3.3-5.1); Sodium 138 mmol/L (135-145); Total Protein 6.5 g/dL (6.5-8.0)
[2025-09-09 12:13] LABS: Prostate Specific Antigen < 0.10 ng/mL (<0.05-4.0)
== END 2025-09-09 10:29 | disposition home or self-care (01) ==
LOC: HO.LAB 10:28
PROVIDERS: PCP Internal Medicine; Visit Provider Internal Medicine Medical Oncology
DX: C34.92 Malignant neoplasm of unspecified part of left bronchus or lung (principal); C61 Malignant neoplasm of prostate; Z12.5 Encounter for screening for malignant neoplasm of prostate
CPT/HCPCS: 36415; 80053; 84153; 85025

== ENCOUNTER 2025-09-19 08:36 | Outpatient (REF) | payer OTHER, SELFPAY ==
--- NOTE | ~2025-09-19 | CT_ITS ---
EXAMINATION: CT CHEST WITH CONTRAST CLINICAL INFORMATION: HISTORY OF LUNG CANCER According to the EMR: -Status post right lower lobectomy and lymph node biopsies in June 2021, with pathology results showing invasive acinar adenocarcinoma. -History of prostate cancer, being treated with hormonal therapy. -Left lower lobe wedge resection of the left lung on January 2022 for invasive Lepidic adenocarcinoma. COMPARISON: Chest CT on October 21, 2023 and January 21, 2023. Ultrasound of the thyroid on July 08, 2022. TECHNIQUE: Multidetector volumetric CT imaging of the chest was obtained after the administration of 65 cc of Omnipaque 350 intravenous contrast without immediate adverse reactions. Axial MIP volume rendering provided. Sagittal and coronal reformatted images were obtained. This CT examination was performed using dose optimization techniques as appropriate, variously including the following: *Automated exposure control *Adjustment of mA and/or kV according to patient size (this includes techniques or standardized protocols for targeted exams where dose is matched to indication/reason for exam; i.e. extremities or head) *Use of iterative reconstruction technique FINDINGS: LUNGS: Status post right lower lobectomy and left lower lobe wedge resection. Minimally scattered soft tissue density throughout the central airways likely represented secretions/mucous. No focal consolidation. Small patchy area of groundglass opacity in the right upper lobe (4:55/148, 4:57/148). Linear scarring bilateral lung bases. Calcified pulmonary nodules 0.4 cm posterolateral in right upper lobe (4:55/148) and 0.2 cm in the anterior left upper lobe (4:57/148) are unchanged from January 2023. Tiny 0.1 cm nodule in the left upper lobe (4:74/148), difficult to be certain if new given differences in slice thickness. PLEURA: No pneumothorax or pleural effusion. MEDIASTINUM: Known thyroid nodules, that have been previously evaluated with ultrasound in 2021. Heart is normal in size. No pericardial effusion. Moderate amount of coronary artery calcifications. Atherosclerotic disease with calcifications along the thoracic aorta. LYMPH NODES: No bulky lymphadenopathy UPPER ABDOMEN: Incompletely evaluated tiny calcifications at the level of the gallbladder fundus likely represented gallstones. OSSEOUS STRUCTURES: No acute findings or destructive lesions. CT/CT chest w IV con IMPRESSION: 1. Small patchy area of groundglass opacity in the right upper lobe likely reflecting focal area of inflammatory/infectious process. 2. Possible new 0.1 cm nodule in the left upper lobe. Recommend follow-up per oncology protocol. Electronically signed by: Cora Tapia MD 09/19/2025 10:02 AM EDT
[2025-09-19] MEDS: iohexoL 350 MG/ML 100 ML INFUS..BTL IV (09:18)
--- OUTSIDE RECORDS SUMMARY | 2025-09-19 09:25 | XMS_ITS | Clinical Summary ---
Author Organization [facility] Address [address] [place] [address] Care Team Providers Care Oleo Hasher And Renderer Name Role Phone Sudhakar Landrum MD Primary Care Provider [phone] Medications Medication Sig Dispensed Refills Start Date End Date Status atorvastatin (LIPITOR) tablet 20 mg Take 20 mg by mouth. 0 Active citalopram (CeleXA) 20 MG tablet Take 20 mg by mouth. 0 Active Stool Softener 100 MG capsule Take 100 mg by mouth 2 (two) times a day. 0 02/13/2022 Active metFORMIN (GLUCOPHAGE) tablet 500 mg Take 500 mg by mouth. 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 Postoperatively patient is doing quite well with no concerning signs or symptoms. Patient was instructed he will continue to follow with the thoracic surgical department every 6 months for the first 2 years with a chest CT scan surveillance. Following 2 years surveillance his chest CT surveillance will be increased to intervals of 12 months for 3 years thereafter for a total surveillance time of 5 years. Patient was also educated that he will be referred to medical oncology due to his lung cancer staging for discussion of any possible chemotherapy interventions. 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 Postoperatively patient is doing quite well with no concerning signs or symptoms. Patient was instructed he will continue to follow with the thoracic surgical department every 6 months for the first 2 years with a chest CT scan surveillance. Following 2 years surveillance his chest CT surveillance will be increased to intervals of 12 months for 3 years thereafter for a total surveillance time of 5 years. Patient was also educated that he will be referred to medical oncology due to his lung cancer staging for discussion of any possible chemotherapy interventions. Social History Tobacco Use Types Packs/Day Years Used Date Smoking Tobacco: Former Smokeless Tobacco: Never Alcohol Use Standard Drinks/Week Comments Yes 0 (1 standard drink = 0.6 oz pur e alcohol) occasional Sex and Gender Information Value Date Recorded Sex Assigned at Not on file Gender Identity Not on file Sexual Orientation Not on file Last Filed Vital Signs Vital Sign Reading Time Taken Comments Blood Pressure 140/65 03/09/2022 3:08 PM EDT Pulse 115 03/09/2022 3:08 PM EDT Temperature 36 C (96.8 F) 03/09/2022 3:08 PM EDT Respiratory Rate - - Oxygen Saturation 96% 03/09/2022 3:08 PM EDT Inhaled Oxygen Concentration - - Weight 77.6 kg (171 lb) 03/09/2022 3:08 PM EDT Height - - Body Mass Index - - Plan of Treatment Health Maintenance Due Date Last Done Comments Hepatitis C Screening 1949 COVID-19 Vaccine (#1) 1954 Pneumococcal Vaccine (1 of 2 - PCV) 1955 Depression Screening 1961 Preventative Health Evaluation 1967 DTap / Tdap / Td (1 - Tdap) 1968 Shingrix-Zoster Vaccine (1 of 2) 1968 Colon Cancer Screening (Colonoscopy) 1994 Fall Risk Assessment 2014 RSV Adult > 60+ Yrs or Pregn ant (1 - 1-dose 75+ series) 2024 Influenza Vaccine (#1) 2025 Hepatitis B Vaccines Aged Out No long er eligible based on patient's age to complete this topic RSV Ped < 20 months Aged Out No longe r eligible based on patient's age to complete this topic Care Teams Oleo Hasher And Renderer Relationship Specialty Start Date End Date Sudhakar Landrum MD [address] [place] [address] PCP - General Internal Medicine 03/01/22
--- OUTSIDE RECORDS SUMMARY | 2025-09-19 09:25 | XMS_ITS | Clinical Summary ---
Author Organization 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 Active metFORMIN (GLUCOPHAGE) 1,000 mg tablet Take 1 tablet (1,000 mg total) by mouth 2 (two) times a day with meals. Active citalopram (CeleXA) 10 mg tablet Take 1 tablet (10 mg total) by mouth 1 (one) time each day. Active Active Problems Problem Noted Date Diagnosed Date History of lung cancer 05/29/2025 Assessment & Plan (05/29/2025 1:25 PM EDT): Mr. Celso Arreola is a 74-year-old male who had a right lower lobectomy in June 2021 for stage Ib acinar adenocarcinoma and a left lower lobe superior segmentectomy in January 2022 for stage Ib lepidic adenocarcinoma. The patient's most recent surveillance chest CT scan done May 2025 shows no new or worsening pulmonary nodule, or thoracic adenopathy, to suggest recurrence or new disease. We will continue with routine chest CT surveillance next of which will be in 1 year, May 2026. The patient will have a follow-up visit in the office after that scan as part of his surveillance protocol. Surgical History Surgery Date Site/Laterality Comments EYE SURGERY PROCEDURE: HISTORICAL EYE SURGERY OTHER SURGICAL HISTORY PROCEDURE: [place] BIOPSY PROSTATE INCISIONAL ANY APPROACH LUNG CANCER SURGERY 02/13/2022 Left LLL cancer wedge Medical History Medical History Date Comments Lung cancer ([facility] V[facility], [facility] V28) 02/13/2022 DX:Lung cancer (HCC) LLL Mixed hyperlipidemia DX:Mixed hy perlipidemia DMII (diabetes mellitus, typ e 2) ([facility] V24, [facility] V28) DX:DMII (diabetes mellitus, type 2) (HCC) Prostate cancer ([facility] V24 , [facility] V28) DX:Prostate cancer (HCC) Glaucoma DX:Glaucoma Family History Medical [...] Sign Reading Time Taken Comments Blood Pressure 136/83 05/30/2025 10:47 AM EDT Pulse 84 05/30/2025 10:47 AM EDT Temperature 36.4 C (97.5 F) 05/30/2025 10:47 AM EDT Respiratory Rate 14 05/30/2025 10:4 7 AM EDT Oxygen Saturation 96% 05/30/2025 10: 47 AM EDT Inhaled Oxygen Concentration - - Weight 77.5 kg (170 lb 12.8 oz) 025 10:47 AM EDT Height 162.6 cm (5' 4 ) 05/30/2025 10:4 7 AM EDT Body Mass Index 29.32 05/30/2025 10:47 AM EDT Plan of Treatment Health Maintenance Due Date Last Done Comments Colorectal Cancer Screening: Colonoscopy 1950 Diabetes: Annual GFR (Glomerular Filtration Rate) 1949 Diabetes: Annual Foot Exam 1959 Diabetes: Annual Retina Eye Exam 1959 DTaP,Tdap,and Td Vaccines (2 - Td or Tdap) 07/05/2022 07/05/2012 Abdominal Aortic Aneurysm (AAA) Screen 10/24/2022 Cholesterol Screening (Lipid Panel) 10/24/2022 Falls Risk Assessment 10/24/2022 Hepatitis C Screening 10/24/2022 Medicare Annual Wellness Visit 10/24/2022 Social Influencers of Health Screening 10/24/2022 Diabetes: Annual Urine Albumin-Creatinine Ratio (uACR) 09/03/2024 Diabetes: Blood Sugar Control Test (HGBA1C) 09/03/2024 Depression Screening 11/21/2024 Zoster Vaccines (2 of 2) 01/03/2025 11/08/2024, 11/2014 COVID-19 Vaccine (6 - Pfizer risk season) 2025 11/08/2024, 12/20/2023, 11/10/2021, Additional history exists Influenza Vaccine (#1) 2025 , 09/26/2023, 08/26/2022, Additional history exists Pneumococcal Vaccine: 50+ Years Completed 09/28/2021, 10/04/2016 RSV Immunization Adult Patients Completed 01/10/2025 HIB Vaccines Aged Out No longer eligi [...] age to complete this topic Meningococcal B Vaccine Aged Out No l onger eligible based on patient's age to complete this topic RSV Immunization Patients Under 20 months Aged Out No longer eligible based on patient's age to complete this topic Varicella Vaccines Aged Out No longer eligible based on patient's age to complete this topic [place] [address] Member Subscriber Plan / Payer (Ef fective 2023-Present) Name:Homero Drake Relation to Subscriber:Self Name:Homero Drake Payer ID:[id number] Group ID:[id number] Type:Not on file Address: [address] [place] [address] [employer] Member Subscriber Plan / Payer (Ef fective 2023-) Name:Homero Drake Relation to Subscriber:Self Name:Homero Drake Payer ID:[id number] Group ID:Not on file Type:Not on file Address: [address] [place] [phone] Care Teams Ref[employer] [facility] Relationship Specialty Start Date End Date Clifton Bennett MD [address] [place] [address] PCP - General 12/28/23
== END 2025-09-19 08:37 | disposition home or self-care (01) ==
LOC: HO.CT 08:36
PROVIDERS: PCP Nurse Practitioner Family; Visit Provider Internal Medicine Medical Oncology
DX: R91.1 Solitary pulmonary nodule (principal)
CPT/HCPCS: 71260; Q9967

== ENCOUNTER → 2025-09-19 08:37 | Outpatient (BNV) | payer OTHER, SELFPAY | PROVIDERS: PCP Nurse Practitioner Family; Visit Provider Radiology Body Imaging | DX: R91.8 Other nonspecific abnormal finding of lung field (principal) | CPT/HCPCS: 71260 ==